=== PATIENT | male | born 1950 | race Caucasian/White ===

== ENCOUNTER 2017-07-02 06:52 | Emergency (ER) | payer MEDICARE, OTHER ==
[~2017-07-02] VITALS: Ht 182.9 cm; Wt 86.5 kg
[2017-07-02 07:01] VITALS: BP 167/86; PULSE 85; RESP 18; TEMP 97.6; O2SAT 97
--- NOTE | 2017-07-02 07:08 | PD ---
HPI Chief Complaint: Back/ Neck Pain or Injury Time Seen by Provider: 06:57 Travel History International Travel<30 days: No Contact w/Intl Traveler<30days: No Traveled to known affect area: No History of Present Illness HPI 67-year-old male complains of upper back pain. Patient state that the pain started about 4 days ago. Patient states the pains is aching pain localized to the upper back. Patient denies any pain radiation. Patient denies any headache. Patient denies any neck pain. Patient denies any chest pain or shortness of breath. Patient denies abdominal pain. Patient denies any focal weakness or numbness of extremity. Patient has been doing a lot of heavy lifting recently. Patient denies any history of CAD. Patient has history hypertension and hyperlipidemia. Patient denies history diabetes. Patient is a nonsmoker. On a scale of 1-10 the pain is a 7. PFSH Social History Tobacco Use: No Allergies-Medications (Allergen,Severity, Reaction): Coded Allergies: hydrocodone (Verified Allergy, Intermediate, Rash, 07/02/17) Reported Meds & Prescriptions Reported Meds & Active Scripts Active Robaxin (Methocarbamol) 750 Mg Tab 750 Mg PO QID Ultram (Tramadol HCl) 50 Mg Tab 50 Mg PO Q6H PRN Reported Allopurinol 100 Mg Tab 100 Mg PO DAILY [place]nard-3 Fish Oil/Vitamin (Fish Oil-Cholecalciferol) 1,000-1,000 Mg Cap 1 Cap PO DAILY Atorvastatin (Atorvastatin Calcium) 40 Mg Tab 40 Mg PO HS Omeprazole 20 Mg Tab 20 Mg PO DAILY Lisinopril 5 Mg Tab 5 Mg PO BID Review of Systems General / Constitutional: No: Fever Eyes: No: Visual changes HENT: No: Headaches Cardiovascular: No: Chest Pain or Discomfort Respiratory: No: Shortness of Breath Gastrointestinal: No: Abdominal Pain Genitourinary: No: Dysuria Musculoskeletal: No: Pain Skin: No Rash Neurologic: No: Weakness Psychiatric: No: Depression Endocrine: No: Polydipsia Hematologic/Lymphatic: No: Easy Bruising Physical Exam Narrative GENERAL: Well-nourished, well-developed patient. SKIN: Focused skin assessment warm/dry. HEAD: Normocephalic. EYES: No scleral icterus. No injection or drainage. NECK: Supple, trachea midline. No JVD or lymphadenopathy. CARDIOVASCULAR: Regular rate and rhythm without murmurs, gallops, or rubs. RESPIRATORY: Breath sounds equal bilaterally. No accessory muscle use. GASTROINTESTINAL: Abdomen soft, non-tender, nondistended. MUSCULOSKELETAL: No cyanosis, or edema. BACK: Moderate tenderness and palpation thoracic area, without obvious deformity. No CVA tenderness. Neurologic exam normal. Data Data Last Documented VS Vital Signs Date Time Temp Pulse Resp B/P (MAP) Pulse Ox O2 Delivery O2 Flow Rate FiO2 07/02/17 08:49 07/02/17 08:20 52 18 97 Room Air 07/02/17 07:01 97.6 Orders Orders Electrocardiogram (07/02/17 07:02) Complete Blood Count With Diff (07/02/17 07:02) Comprehensive Metabolic Panel (07/02/17 07:02) Creatine Kinase (Cpk) (07/02/17 07:02) Troponin I (07/02/17 07:02) Prothrombin Time / Inr (Pt) (07/02/17 07:02) Act Partial Throm Time (Ptt) (07/02/17 07:02) Chest, Single Ap (07/02/17 07:02) Iv Access Insert/Monitor (07/02/17 07:02) Ecg Monitoring (07/02/17 07:02) Oximetry (07/02/17 07:02) Morphine Inj (Morphine Inj) (07/02/17 07:15) Ondansetron Inj (Zofran Inj) (07/02/17 07:15) Ct Thorax/ Chest Wo Iv Contras (07/02/17 ) Labs Laboratory Tests Test 07/02/17 07:15 White Blood Count 5.4 TH/MM3 Red Blood Count 4.94 MIL/MM3 Hemoglobin 13.4 GM/DL Hematocrit 41.5 % Mean Corpuscular Volume 83.9 FL Mean Corpuscular Hemoglobin 27.1 PG Mean Corpuscular Hemoglobin Concent 32.3 % Red Cell Distribution Width 14.8 % Platelet Count 183 TH/MM3 Mean Platelet Volume 7.2 FL Neutrophils (%) (Auto) 51.1 % Lymphocytes (%) (Auto) 39.4 % Monocytes (%) (Auto) 5.7 % Eosinophils (%) (Auto) 3.0 % Basophils (%) (Auto) 0.8 % Neutrophils # (Auto) 2.8 TH/MM3 Lymphocytes # (Auto) 2.1 TH/MM3 Monocytes # (Auto) 0.3 TH/MM3 Eosinophils # (Auto) 0.2 TH/MM3 Basophils # (Auto) 0.0 TH/MM3 CBC Comment DIFF FINAL Differential Comment Prothrombin Time 10.6 SEC Prothromb Time International Ratio 1.0 RATIO Activated Partial Thromboplast Time 26.6 SEC Blood Urea Nitrogen 20 MG/DL Creatinine 2.00 MG/DL Random Glucose 95 MG/DL Total Protein 6.7 GM/DL Albumin 3.2 GM/DL Calcium Level 8.3 MG/DL Alkaline Phosphatase 107 U/L Aspartate Amino Transf (AST/SGOT) 23 U/L Alanine Aminotransferase (ALT/SGPT) 30 U/L Total Bilirubin 0.3 MG/DL Sodium Level 146 MEQ/L Potassium Level 3.8 MEQ/L Chloride Level 112 MEQ/L Carbon Dioxide Level 26.5 MEQ/L Anion Gap 8 MEQ/L Estimat Glomerular Filtration Rate 33 ML/MIN Total Creatine Kinase 108 U/L Troponin I LESS THAN 0.02 NG/ML MDM Medical Decision Making Medical Screen Exam Complete: Yes Emergency Medical Condition: Yes Interpretation(s) 7:58 AM. CBC within normal limit. BUN 20. Creatinine 2.0. GFR 33. Cardiac enzymes are normal. Last Impressions Chest X-Ray 07/02/17 0702 Signed Impressions: Service Date/Time: Sunday, July 02, 2017 07:18 - CONCLUSION: No acute disease. Nelson Medrano Jr., MD Chest CT 07/02/17 0000 Signed Impressions: Service Date/Time: Sunday, July 02, 2017 07:59 - CONCLUSION: 1. No acute intrathoracic process. 2. Thoracic aorta within the normal range for size. 3. Prior cholecystectomy with pneumobilia suggesting prior sphincterotomy. No biliary dilatation. Nelson Medrano Jr., MD Differential Diagnosis Differential diagnosis including musculoskeletal, angina, LA, PE, pneumothorax, aortic aneurysm. Narrative Course 67-year-old male with upper back pain. Morphine 2 mg IV. Zofran 4 mg IV. Diagnosis Primary Impression: Strain of thoracic region Qualified Codes: S29.019A - Strain of muscle and tendon of unspecified wall of thorax, initial encounter Additional Impression: Renal insufficiency Patient Instructions: General Instructions Additional Instructions: Take medication as needed for pain. Moist heat to the back. Follow-up with personal physician. Return if worse. Med/Other Pt SpecificInfo: Prescription(s) given Scripts Methocarbamol (Robaxin) 750 Mg Tab 750 MG PO QID for Muscle Spasm, #40 TAB 0 Refills Prov: Pacheco Prasad MD 07/02/17 Tramadol (Ultram) 50 Mg Tab 50 MG PO Q6H Y for PAIN, #30 TAB 0 Refills Prov: Pacheco Prasad MD 07/02/17 Disposition: 01 DISCHARGE HOME Condition: Stable Pacheco Prasad MD Jul 02, 2017 07:08
[2017-07-02] MEDS ORDERED: ONDANSETRON HCL 4 MG/2 ML VIAL IV PUSH ONE (07:15)
[2017-07-02] MEDS ORDERED: MORPHINE SULFATE 4 MG/ML INJ IV PUSH ONE (07:15)
[2017-07-02 07:22] VITALS: RESP 18; O2SAT 97
[2017-07-02 07:22] LABS: AUTOMATED NEUTROPHIL # 2.8 TH/MM3 (1.8-7.7); BASOPHIL % 0.8 % (0.0-2.0); EOSINOPHIL # 0.2 TH/MM3 (0-0.4); HEMATOCRIT 41.5 % (39.0-51.0); HEMO FLAGS DIFF FINAL; LYMPH % 39.4 % (9.0-44.0); LYMPHOCYTE # 2.1 TH/MM3 (1.0-4.8); MEAN CELL VOLUME 83.9 FL (80.0-100.0); MEAN CORPUSCULAR HEMOGLOBIN 27.1 PG (27.0-34.0); MEAN CORPUSCULAR HGB CONC 32.3 % (32.0-36.0); MONO % 5.7 % (0.0-8.0); NEUT % 51.1 % (16.0-70.0); PLATELET COUNT 183 TH/MM3 (150-450); RED BLOOD COUNT 4.94 MIL/MM3 (4.50-5.90); RED CELL DISTRIBUTION WIDTH 14.8 % (11.6-17.2); WHITE BLOOD COUNT 5.4 TH/MM3 (4.0-11.0)
[2017-07-02] MEDS ORDERED: ALLO100T PO (07:28)
[2017-07-02] MEDS ORDERED: OMEGCAP PO (07:28)
[2017-07-02] MEDS ORDERED: LISI-519 PO (07:28)
[2017-07-02] MEDS ORDERED: OMEP20TA PO (07:28)
[2017-07-02] MEDS ORDERED: ATOR40TA16 PO (07:28)
[2017-07-02 07:35] LABS: CHLORIDE 112 MEQ/L (98-107); POTASSIUM 3.8 MEQ/L (3.5-5.1); SODIUM (NA) 146 MEQ/L (136-145)
[2017-07-02 07:38] LABS: ANION GAP 8 MEQ/L (5-15); BICARBONATE 26.5 MEQ/L (21.0-32.0)
[2017-07-02 07:39] LABS: APTT (PATIENT) 26.6 SEC (24.3-30.1); BLOOD UREA NITROGEN 20 MG/DL (7-18); PROTHROMBIN TIME - PATIENT 10.6 SEC (9.8-11.6)
[2017-07-02 07:41] LABS: ALT (GPT) 30 U/L (12-78)
[2017-07-02 07:42] LABS: AST (GOT) 23 U/L (15-37); GLOMERULAR FILTRATION RATE 33 ML/MIN (>89)
[2017-07-02 07:43] LABS: TOTAL BILIRUBIN ADULT 0.3 MG/DL (0.2-1.0)
[2017-07-02 07:44] LABS: ALKALINE PHOSPHATASE 107 U/L (45-117); CREATINE KINASE 108 U/L (39-308)
--- NOTE | 2017-07-02 07:59 | RADRPT ---
EXAM DATE/TIME: 07/02/2017 07:18 [facility] COMPARISON: No previous studies available for comparison. INDICATIONS : Short of breath MEDICAL HISTORY : None. SURGICAL HISTORY : None. ENCOUNTER: Initial ACUITY: 3 days PAIN SCORE: 0/10 LOCATION: Bilateral chest FINDINGS: A single view of the chest demonstrates the lungs to be symmetrically aerated without evidence of mas s, infiltrate or effusion. The cardiomediastinal contours are unremarkable. Osseous structures are intact. CONCLUSION: No acute disease. Nelson Medrano Jr., MD on July 02, 2017 at 7:57 Board Certified Radiologist. This report was verified electronically.
--- NOTE | 2017-07-02 08:16 | RADRPT ---
EXAM DATE/TIME: 07/02/2017 07:59 [facility] COMPARISON: No previous studies available for comparison. INDICATIONS : Upper back pain x 4 days. Evaluate for aneurysm. RADIATION DOSE: 12.75 CTDIvol (mGy) MEDICAL HISTORY : Gastroesophageal reflux disease. Hypertension. SURGICAL HISTORY : Cholecystectomy. ENCOUNTER: Initial ACUITY: 4 - 6 days PAIN SCALE: 8/10 LOCATION: Upper back TECHNIQUE: Volumetric scanning of the chest was performed. Using automated exposure control and adjustment DICO M format image data is available electronically for review and comparison. Follow-up recommendations for detected pulmonary nodules are based at a minimum on nodule size and pa tient risk factors according to Fleischner Society Guidelines. FINDINGS: LUNGS: Mild cylindrical bronchiectasis in a diffuse fashion. No peribronchial thickening. No infiltrate or m ass. PLEURAE: There is no pleural thickening or pleural effusion. MEDIASTINUM: The heart is normal in size. No pericardial effusion. The ascending aorta at the top normal size rocío uring 4 cm in diameter within the mid tubular portion. Descending aorta and aortic arch are normal in caliber as well. Pulmonary arteries are normal in caliber. No adenopathy. AXILLAE: Within normal limits. No lymphadenopathy. MUSCULOSKELETAL: Within normal limits for patient age. MISCELLANEOUS: The gallbladder is surgically absent. There is pneumobilia seen within the pancreatic duct as well as the intrahepatic biliary system. No dilatation observed. A 4.3 cm cyst is seen exophytic from the up per pole the right kidney. Hounsfield units are a period CONCLUSION: 1. No acute intrathoracic process. 2. Thoracic aorta within the normal range for size. 3. Prior cholecystectomy with pneumobilia suggesting prior sphincterotomy. No biliary dilatation. Nelson Medrano Jr., MD on July 02, 2017 at 8:10 Board Certified Radiologist. This report was verified electronically.
[2017-07-02 08:20] VITALS: BP 156/80; PULSE 52; RESP 18; O2SAT 97
[2017-07-02] MEDS ORDERED: ROBA750T PO (08:32)
[2017-07-02] MEDS ORDERED: ULTR50TA5 PO (08:32)
--- NOTE | 2017-07-02 20:24 | EKG ---
Date Performed: 07/02/2017 Time Performed: 07:31:41 PTAGE: 67 years EKG: SINUS BRADYCARDIA WITH FIRST DEGREE AV BLOCK ABNORMAL ECG NO PREVIOUS TRACING DOCTOR: Emory Reyes Interpretating Date/Time 07/02/2017 20:22:10
== END 2017-07-02 08:50 | disposition home or self-care (01) ==
LOC: PHED 06:52
DX: S29.019A Strain of muscle and tendon of unspecified wall of thorax, initial encounter (principal); N28.9 Disorder of kidney and ureter, unspecified; R94.31 Abnormal electrocardiogram [ECG] [EKG]; I10 Essential (primary) hypertension; E78.5 Hyperlipidemia, unspecified; X50.0XXA Overexertion from strenuous movement or load, initial encounter
CPT/HCPCS: 71010; 71250; 80053; 82550; 84484; 85025; 85610; 85730; 93005; 96374; 96375; 99285; J2270; J2405

== ENCOUNTER 2017-07-18 23:09 | Inpatient (IN) | payer MEDICARE, OTHER ==
[~2017-07-18] VITALS: Ht 182.9 cm; Wt 88.6 kg
[~2017-07-18 23:09] MED LIST: ALLO100T PO; ATOR40TA16 PO; LISI-519 PO; OMEGCAP PO; OMEP20TA PO; ROBA750T PO; ULTR50TA5 PO
[2017-07-18 23:15] VITALS: BP 166/92; PULSE 81; RESP 16; TEMP 97.3; O2SAT 98
[2017-07-19] VITALS (11 sets, daily range): BP systolic 97–148; BP diastolic 64–95; PULSE 50–72; RESP 16–28; TEMP 96.2–98.2; O2SAT 95–99
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
[2017-07-19] MEDS ORDERED: ONDANSETRON HCL 4 MG/2 ML VIAL IV ONE (01:00)
[2017-07-19] MEDS: SODIUM CHLORIDE 0.9% FLUSH 10 ML FLUSH IV FLUSH PRN ×2 (01:27→02:32)
[2017-07-19] MEDS: SODIUM CHLOR 0.9% 1000 ML INJ 1,000 ML IV SCH ×5 (01:29→23:37)
[2017-07-19 01:52] LABS: BLOOD, URINE SMALL (NEG); GLUCOSE,URINE NEG (NEG); KETONE, URINE NEG (NEG); NITRITE,URINE NEG (NEG); PH, URINE 5.5 (5.0-8.5)
[2017-07-19 02:00] LABS: CHLORIDE 111 MEQ/L (98-107); POTASSIUM 4.3 MEQ/L (3.5-5.1); SODIUM (NA) 147 MEQ/L (136-145)
[2017-07-19 02:02] LABS: METHOD OF COLLECTION VOIDED; URINE COLOR YELLOW (YELLW/STRAW)
[2017-07-19 02:03] LABS: WBC, URINE 0-2 /hpf (0-5)
[2017-07-19 02:04] LABS: ANION GAP 8 MEQ/L (5-15); BICARBONATE 28.1 MEQ/L (21.0-32.0); BLOOD UREA NITROGEN 18 MG/DL (7-18)
[2017-07-19 02:04] LABS: COMMENT (UR) CULT NOT INDICATED; CULTURE IF INDICATED CULT NOT INDICATED; RBC, URINE 0-3 /hpf (0-3); SQUAMOUS EPITHELIAL CELL URINE 0-2 /hpf (0-5)
[2017-07-19 02:07] LABS: ALT (GPT) 39 U/L (12-78); AST (GOT) 36 U/L (15-37); GLOMERULAR FILTRATION RATE 35 ML/MIN (>89)
[2017-07-19 02:08] LABS: TOTAL BILIRUBIN ADULT 0.3 MG/DL (0.2-1.0)
[2017-07-19 02:10] LABS: ALKALINE PHOSPHATASE 112 U/L (45-117)
[2017-07-19] MEDS ORDERED: PANTOPRAZOLE SODIUM 40 MG VIAL IVP ONE (02:15)
[2017-07-19] MEDS ORDERED: FAMOTIDINE 20 MG/2 ML VIAL IV PUSH ONE (02:15)
--- NOTE | 2017-07-19 02:44 | RADRPT ---
EXAM DATE/TIME: 07/19/2017 02:17 [facility] COMPARISON: No previous studies available for comparison. INDICATIONS : Abdominal pain. Vomiting. Diarrhea. ORAL CONTRAST: No oral contrast ingested. RADIATION DOSE: 17.22 CTDIvol (mGy) MEDICAL HISTORY : Hypertension. Diverticulitis. Pancreatitis. SURGICAL HISTORY : Cholecystectomy. ENCOUNTER: Initial ACUITY: 1 day PAIN SCALE: 5/10 LOCATION: Bilateral lower quadrant TECHNIQUE: Volumetric scanning of the abdomen and pelvis was performed. Using automated exposure control and ad justment of the mA and/or kV according to patient size, radiation dose was kept as low as reasonably achievable to obtain optimal diagnostic quality images. DICOM format image data is available electro nically for review and comparison. FINDINGS: LOWER LUNGS: The visualized lower lungs are clear. LIVER: Homogeneous density without lesion. There is no dilation of the biliary tree. Pneumobilia noted. Gal lbladder surgically absent. SPLEEN: Normal size without lesion. PANCREAS: Within normal limits. KIDNEYS: Normal in size and shape. There is no mass, stone, or hydronephrosis. A 4.3 cm cyst is seen involvin g the upper pole the right kidney. ADRENAL GLANDS: Within normal limits. VASCULAR: There is no aortic aneurysm. BOWEL/MESENTERY: Bowel structures are limited in their evaluation due to the lack of oral contrast. There is stranding of the mesentery particularly involving the distal jejunal and proximal ileal loops. Very small volu me free fluid is seen. These loops of small bowel appear grossly unremarkable without discernible wal l thickening. No free air. Scattered colonic diverticuli. ABDOMINAL WALL: Within normal limits. RETROPERITONEUM: There is no lymphadenopathy. BLADDER: No wall thickening or mass. REPRODUCTIVE: Within normal limits. INGUINAL: There is no lymphadenopathy or hernia. MUSCULOSKELETAL: Within normal limits for patient age. CONCLUSION: 1. There is an inflammatory process involving the mesentery. The bowel loops are somewhat limited in their evaluation due to lack of oral contrast but the bowel loops appear grossly unremarkable. This i s suggestive of an acute mesenteritis. 2. Pneumobilia. This would suggest prior intervention such as a sphincterotomy. 3. Prior cholecystectomy. Nelson Medrano Jr., MD on July 19, 2017 at 2:38 Board Certified Radiologist. This report was verified electronically.
[2017-07-19 02:51] LABS: AUTOMATED NEUTROPHIL # 10.2 TH/MM3 (1.8-7.7); BASOPHIL # 0.2 TH/MM3 (0-0.2); BASOPHIL % 1.7 % (0.0-2.0); EOSINOPHIL # 0.2 TH/MM3 (0-0.4); EOSINOPHIL % 1.3 % (0.0-4.0); HEMATOCRIT 47.1 % (39.0-51.0); LYMPHOCYTE # 1.9 TH/MM3 (1.0-4.8); MEAN CELL VOLUME 82.5 FL (80.0-100.0); MEAN CORPUSCULAR HEMOGLOBIN 26.1 PG (27.0-34.0); MEAN CORPUSCULAR HGB CONC 31.6 % (32.0-36.0); MONO % 6.4 % (0.0-8.0); NEUT % 76.6 % (16.0-70.0); PLATELET COUNT 205 TH/MM3 (150-450); RED BLOOD COUNT 5.71 MIL/MM3 (4.50-5.90); RED CELL DISTRIBUTION WIDTH 13.9 % (11.6-17.2); WHITE BLOOD COUNT 13.4 TH/MM3 (4.0-11.0)
[2017-07-19 02:52] LABS: HEMO FLAGS DIFF FINAL
[2017-07-19] MEDS ORDERED: SODIUM CHLORIDE 0.9% FLUSH 10 ML FLUSH IV FLUSH PRN (03:45)
[2017-07-19] MEDS ORDERED: LACTULOSE SYRUP 20 GM/30 ML CUP PO PRN (03:45)
[2017-07-19] MEDS ORDERED: ACETAMINOPHEN 325 MG TAB PO PRN (03:45)
[2017-07-19] MEDS ORDERED: traMADol HCL 50 MG TAB PO PRN ×2 (03:45→17:15)
[2017-07-19] MEDS ORDERED: ONDANSETRON HCL 4 MG/2 ML VIAL IVP PRN (03:45)
[2017-07-19] MEDS ORDERED: BISACODYL 10 MG SUPP RECTAL PRN (03:45)
[2017-07-19] MEDS ORDERED: MORPHINE SULFATE 4 MG/ML INJ IV PUSH PRN (03:45)
[2017-07-19] MEDS ORDERED: MAGNESIUM HYDROXIDE SUSP 30 ML CUP PO PRN (03:45)
[2017-07-19] MEDS ORDERED: SENNOSIDES 8.6 MG TAB PO PRN (03:45)
[2017-07-19] MEDS: CIPROFLOXACIN 400 MG PREMIX 200 ML IV SCH ×2 (03:53→16:16)
[2017-07-19] MEDS: metroNIDAZOLE 500 MG INJ 100 ML IV SCH ×2 (05:03→13:28)
[2017-07-19 05:19] LABS: C. DIFF EPI 027 PRESUMPTIVE NEGATIVE (NEGATIVE)
[2017-07-19] MEDS: SODIUM CHLORIDE 0.9% FLUSH 10 ML FLUSH IV FLUSH SCH ×2 (09:00→21:00)
[2017-07-19] MEDS: DOCUSATE SODIUM 50 MG/SENNA 8.6 MG TAB PO SCH ×2 (09:00→21:00)
--- NOTE | 2017-07-19 09:08 | HHI.HP ---
[facility] Marques Mcmillan MD Admission Diagnosis mesenteritis, dehydration Diagnoses: Travel History International Travel<30 Days: No Contact w/Intl Traveler <30 Da: No Traveled to Known Affected Are: No Past Family Social History Allergies: Coded Allergies: hydrocodone (Verified Allergy, Intermediate, Rash, 07/19/17) Physical Exam Vital Signs Vital Signs Date Time Temp Pulse Resp B/P (MAP) Pulse Ox O2 Delivery O2 Flow Rate FiO2 07/19/17 07:59 82 18 110/67 (81) 96 07/19/17 06:36 56 16 108/64 (79) 99 Room Air 07/19/17 05:35 58 16 97/65 (76) 95 Room Air 07/19/17 04:35 66 16 125/79 (94) 97 Room Air 07/19/17 03:35 98.2 67 16 140/66 (90) 99 Room Air 07/19/17 03:35 18 07/19/17 02:35 70 16 126/74 (91) 97 Room Air 07/19/17 01:35 70 16 148/83 (104) 95 Room Air 07/19/17 00:35 72 16 146/95 (112) 96 Room Air 07/19/17 00:35 18 96 Room Air 07/19/17 00:30 18 07/18/17 23:15 97.3 81 16 166/92 (116) 98 Physical Exam GENERAL: This is a well-nourished, well-developed patient, in no apparent distress. SKIN: No rashes, ecchymoses or lesions. Cool and dry. HEAD: Atraumatic. Normocephalic. No temporal or scalp tenderness. EYES: Pupils equal round and reactive. Extraocular motions intact. No scleral icterus. No injection or drainage. ENT: Nose without bleeding, purulent drainage or septal hematoma. Throat without erythema, tonsillar hypertrophy or exudate. Uvula midline. Airway patent. NECK: Trachea midline. No JVD or lymphadenopathy. Supple, nontender, no meningeal signs. CARDIOVASCULAR: Regular rate and rhythm without murmurs, gallops, or rubs. RESPIRATORY: Clear to auscultation. Breath sounds equal bilaterally. No wheezes , rales, or rhonchi. GASTROINTESTINAL: Abdomen soft, non-tender, nondistended. No hepato-splenomegaly , or palpable masses. No guarding. MUSCULOSKELETAL: Extremities without clubbing, cyanosis, or edema. No joint tenderness, effusion, or edema noted. No calf tenderness. Negative Homans sign bilaterally. NEUROLOGICAL: Awake and alert. Cranial nerves II through XII intact. Motor and sensory grossly within normal limits. Five out of 5 muscle strength in all muscle groups. Normal speech. Laboratory Laboratory Tests Test 07/19/17 00:15 07/19/17 00:25 07/19/17 01:20 Urine Collection Type VOIDED Urine Color YELLOW Urine Turbidity CLEAR Urine pH 5.5 Urine Specific [place] 1.031 Urine Protein 30 Urine Glucose (UA) NEG Urine Ketones NEG Urine Occult Blood SMALL Urine Nitrite NEG Urine Bilirubin NEG Urine Leukocyte Esterase NEG Urine RBC 0-3 Urine WBC 0-2 Urine Squamous Epithelial Cells 0-2 Urine Hyaline Casts 3-5 Microscopic Urinalysis Comment CULT NOT INDICATED Stool C. difficile Toxin (PCR) NEGATIVE Stl C. difficile Toxin Epiderm 027 PRESUMPTIVE NEGATIVE White Blood Count 13.4 Red Blood Count 5.71 Hemoglobin 14.9 Hematocrit 47.1 Mean Corpuscular Volume 82.5 Mean Corpuscular Hemoglobin 26.1 Mean Corpuscular Hemoglobin Concent 31.6 Red Cell Distribution Width 13.9 Platelet Count 205 Mean Platelet Volume 8.8 Neutrophils (%) (Auto) 76.6 Lymphocytes (%) (Auto) 14.0 Monocytes (%) (Auto) 6.4 Eosinophils (%) (Auto) 1.3 Basophils (%) (Auto) 1.7 Neutrophils # (Auto) 10.2 Lymphocytes # (Auto) 1.9 Monocytes # (Auto) 0.9 Eosinophils # (Auto) 0.2 Basophils # (Auto) 0.2 CBC Comment DIFF FINAL Differential Comment Blood Urea Nitrogen 18 Creatinine 1.90 Random Glucose 117 Total Protein 7.5 Albumin 3.5 Calcium Level 8.8 Alkaline Phosphatase 112 Aspartate Amino Transf (AST/SGOT) 36 Alanine Aminotransferase (ALT/SGPT) 39 Total Bilirubin 0.3 Sodium Level 147 Potassium Level 4.3 Chloride Level 111 Carbon Dioxide Level 28.1 Anion Gap 8 Estimat Glomerular Filtration Rate 35 Troponin I LESS THAN 0.02 Lipase 227 Date/Time Source Procedure Growth Status 07/19/17 00:25 Stool Stool Cryptosporidium Exam Pending Received 07/19/17 00:25 Stool Stool Giardia Antigen (SANJAY) Pending Received Result Diagram: 07/19/17 0120 07/19/17 0120 Caprini VTE Risk Assessment Caprini Risk Assessment Model Point Value = 1 Point Value = 2 Point Value = 3 Point Value = 5 Age 41-60 Minor surgery BMI > 25 kg/m2 Swollen legs Varicose veins or History of unexplained or recurrent spontaneous Oral contraceptives or hormone replacement Sepsis (< 1 month) Serious lung disease, including pneumonia (< 1 month) Abnormal pulmonary function Acute myocardial infarction Congestive heart failure (< 1 month) History of inflammatory bowel disease Medical patient at bed rest Age 61-74 Arthroscopic surgery Major open surgery (> 45 min) Laparoscopic surgery (> 45 min) Malignancy Confined to bed (> 72 hours) Immobilizing plaster cast Central venous access Age >= 75 History of VTE Family history of VTE Factor V Leiden Prothrombin [id number] Lupus anticoagulant Anticardiolipin antibodies Elevated serum homocysteine Heparin-induced thrombocytopenia Other congenital or acquired thrombophilia Stroke (< 1 month) Elective arthroplasty Hip, pelvis, or leg fracture Acute spinal cord injury (< 1 month) Prophylaxis Regimen Total Risk Factor Score Risk Level Prophylaxis Regimen 0-1 Low Early ambulation 2 Moderate Order ONE of the following: *Sequential Compression Device (SCD) *Heparin 5000 units SQ BID 3-4 Higher Order ONE of the following medications: *Heparin 5000 units SQ TID *Enoxaparin/Lovenox 40 mg SQ daily (WT < 150 kg, CrCl > 30 mL/min) *Enoxaparin/Lovenox 30 mg SQ daily (WT < 150 kg, CrCl > 10-29 mL/min) *Enoxaparin/Lovenox 30 mg SQ BID (WT < 150 kg, CrCl > 30 mL/min) AND/OR *Sequential Compression Device (SCD) 5 or more Highest Order ONE of the following medications: *Heparin 5000 units SQ TID (Preferred with Epidurals) *Enoxaparin/Lovenox 40 mg SQ daily (WT < 150 kg, CrCl > 30 mL/min) *Enoxaparin/Lovenox 30 mg SQ daily (WT < 150 kg, CrCl > 10-29 mL/min) *Enoxaparin/Lovenox 30 mg SQ BID (WT < 150 kg, CrCl > 30 mL/min) AND *Sequential Compression Device (SCD) Physician Certification Order for Inpatient Services The services are ordered in accordance with Medicare regulations or non- Medicare payer requirements, as applicable. In the case of services not specified as inpatient-only, they are appropriately provided as inpatient services in accordance with the 2-midnight benchmark. days is the estimated time the patient will need to remain in the hospital, assuming treatment plan goals are met and no additional complications. Ryan Mcdowell Jul 19, 2017 09:08 Rakesh Rahman MD Jul 19, 2017 17:20
[2017-07-19] MEDS: PANTOPRAZOLE SOD 20 MG DELAYED RELEASE TAB PO SCH (09:27)
[2017-07-19] MEDS: METHOCARBAMOL 500 MG TAB PO SCH ×4 (09:28→21:00)
--- NOTE | 2017-07-19 10:50 | HHI.HP ---
[facility] Marques Mmcillan MD Admission Diagnosis mesenteritis, dehydration Diagnoses: (1) Nausea & vomiting (2) Diarrhea in adult patient Diagnosis: Principal (3) Leukocytosis Diagnosis: Principal (4) Chronic kidney disease, stage 3 Diagnosis: Principal Chief Complaint: Nausea, vomiting, diarrhea Travel History International Travel<30 Days: No Contact w/Intl Traveler <30 Da: No Traveled to Known Affected Are: No History of Present Illness Written by Ryan Mcdowell, acting as scribe for Dr. Padilla on 07/19/17 at 10 :50. This is an 67-year-old with known history of hypertension, gout, diverticulitis , history of pancreatitis, Gastrosoft reflux who presented to hospital because of sudden onset diarrhea and then developing nausea vomiting. Patient states that he was in his normal state of health until 9 PM last night when he started having watery diarrhea probably 4-5 times because the diarrhea was persisting he decided to come to the hospital for evaluation and he got in the car to come to the ER and vomited [address]. He vomited another 2 times when his emergency department. He states that he had diarrhea 4 times in the emergency department. The patient was brought to the medical floor and vomited 2 times there. He has already had 2 bowel movements this morning. He states that he has not had any emesis and 6 AM. He was experiencing abdominal pain mainly in the lower abdomen after the diarrhea which he described as a sharp pain. The patient tried to use some Imodium at home without any improvement as well as a medication that his niece had which was Anaspac without any relief. Patient states that eating Cracker Barrel 11:30 AM yesterday morning. Denying anything else until 7 PM last night which was cornbread and milk. Patient denies any fever, chills, hematochezia, melena, hematemesis, dysuria, urinary frequency patient states that his GI doctor is Dr. Phipps and his last colonoscopy was approximately 2 years ago. Patient had workup done emergency department found to have signs of dehydration, leukocytosis, CT scan indicating mesenteritis. Because of those reasons is recommended by the ER physician that the patient be admitted for further evaluation and management Review of Systems Gastrointestinal: COMPLAINS OF: Abdominal pain, Diarrhea, Nausea, Vomiting Except as stated in HPI: all other systems reviewed are Neg Past Family Social History Past Medical History Hypertension Gout Gastroesophageal reflux History diverticulitis History of C. difficile History of pancreatitis Past Surgical History Cholecystectomy Gallstone removal Reported Medications Reported Meds & Active Scripts Active Robaxin (Methocarbamol) 750 Mg Tab 750 Mg PO QID Ultram (Tramadol HCl) 50 Mg Tab 50 Mg PO Q6H PRN Reported Allopurinol 100 Mg Tab 100 Mg PO DAILY [place]-3 Fish Oil/Vitamin (Fish Oil-Cholecalciferol) 1,000-1,000 Mg Cap 1 Cap PO DAILY Atorvastatin (Atorvastatin Calcium) 40 Mg Tab 40 Mg PO HS Omeprazole 20 Mg Tab 20 Mg PO DAILY Lisinopril 5 Mg Tab 5 Mg PO BID Allergies: Coded Allergies: hydrocodone (Verified Allergy, Intermediate, Rash, 07/19/17) Family History Reviewed is significant for mother is but she had history of ulcers, colon and stomach cancer Social History Patient denies any alcohol or illicit drug use. Patient quit smoking in 2013. He believes that he had smoked over 10 years Physical Exam Vital Signs Vital Signs Date Time Temp Pulse Resp B/P (MAP) Pulse Ox O2 Delivery O2 Flow Rate FiO2 07/19/17 07:59 82 18 110/67 (81) 96 07/19/17 06:36 56 16 108/64 (79) 99 Room Air 07/19/17 05:35 58 16 97/65 (76) 95 Room Air 07/19/17 04:35 66 16 125/79 (94) 97 Room Air 07/19/17 03:35 98.2 67 16 140/66 (90) 99 Room Air 07/19/17 03:35 18 07/19/17 02:35 70 16 126/74 (91) 97 Room Air 07/19/17 01:35 70 16 148/83 (104) 95 Room Air 07/19/17 00:35 72 16 146/95 (112) 96 Room Air 07/19/17 00:35 18 96 Room Air 07/19/17 00:30 18 07/18/17 23:15 97.3 81 16 166/92 (116) 98 Physical Exam GENERAL: Well-developed, well-nourished, in no acute distress. alert and orientated HEENT: Head is normocephalic without any lesions or masses noted. Facial features are symmetric. Eyes: Pupils equal round reactive to light. Extraocular muscles are intact. Conjunctivae were clear. Oropharyngeal: Pharynx without any erythema edema. Tongue is midline without deviation. Buccal mucosa is moist without any masses or lesions NECK: Supple without any masses. Trachea midline no deviation. No JVD, no bruits are appreciated CARDIAC: Regular rhythm, regular rate. S1/S2 are heard. No murmurs gallops or rubs. LUNGS: Clear to auscultation bilaterally. No wheeze, rhonchi or rales. No use of accessory muscles on inspiration or expiration. ABDOMEN: Soft, nontender. Mild tenderness noted in epigastric region, left upper abdomen. positive rebound noted in the left lower quadrant. Bowel sounds heard in all 4 quadrants. No organomegaly or masses. negative guarding EXTREMITIES: No edema, pulses are equal bilaterally. No cyanosis or clubbing NEUROLOGY: Mood and affect appear appropriate. Cranial nerves II through XII grossly intact. Muscle strength 5/5 in upper and lower extremities bilaterally. Deep tendon reflexes are 2+ in upper and lower extremities bilaterally. Laboratory Laboratory Tests Test 07/19/17 00:15 07/19/17 00:25 07/19/17 01:20 Urine Collection Type VOIDED Urine Color YELLOW Urine Turbidity CLEAR Urine pH 5.5 Urine Specific [place] 1.031 Urine Protein 30 Urine Glucose (UA) NEG Urine Ketones NEG Urine Occult Blood SMALL Urine Nitrite NEG Urine Bilirubin NEG Urine Leukocyte Esterase NEG Urine RBC 0-3 Urine WBC 0-2 Urine Squamous Epithelial Cells 0-2 Urine Hyaline Casts 3-5 Microscopic Urinalysis Comment CULT NOT INDICATED Stool C. difficile Toxin (PCR) NEGATIVE Stl C. difficile Toxin Epiderm 027 PRESUMPTIVE NEGATIVE White Blood Count 13.4 Red Blood Count 5.71 Hemoglobin 14.9 Hematocrit 47.1 Mean Corpuscular Volume 82.5 Mean Corpuscular Hemoglobin 26.1 Mean Corpuscular Hemoglobin Concent 31.6 Red Cell Distribution Width 13.9 Platelet Count 205 Mean Platelet Volume 8.8 Neutrophils (%) (Auto) 76.6 Lymphocytes (%) (Auto) 14.0 Monocytes (%) (Auto) 6.4 Eosinophils (%) (Auto) 1.3 Basophils (%) (Auto) 1.7 Neutrophils # (Auto) 10.2 Lymphocytes # (Auto) 1.9 Monocytes # (Auto) 0.9 Eosinophils # (Auto) 0.2 Basophils # (Auto) 0.2 CBC Comment DIFF FINAL Differential Comment Blood Urea Nitrogen 18 Creatinine 1.90 Random Glucose 117 Total Protein 7.5 Albumin 3.5 Calcium Level 8.8 Alkaline Phosphatase 112 Aspartate Amino Transf (AST/SGOT) 36 Alanine Aminotransferase (ALT/SGPT) 39 Total Bilirubin 0.3 Sodium Level 147 Potassium Level 4.3 Chloride Level 111 Carbon Dioxide Level 28.1 Anion Gap 8 Estimat Glomerular Filtration Rate 35 Troponin I LESS THAN 0.02 Lipase 227 Date/Time Source Procedure Growth Status 07/19/17 00:25 Stool Stool Cryptosporidium Exam Pending Received 07/19/17 00:25 Stool Stool Giardia Antigen (SANJAY) Pending Received Result Diagram: 07/19/1711907/19/17 012 Imaging Last Impressions Abdomen/Pelvis CT 07/19/177 Signed Impressions: Service Date/Time: Wednesday, July 19, 2017 02:17 - CONCLUSION: 1. There is an inflammatory process involving the mesentery. The bowel loops are somewhat limited in their evaluation due to lack of oral contrast but the bowel loops appear grossly unremarkable. This is suggestive of an acute mesenteritis. 2. Pneumobilia. This would suggest prior intervention such as a sphincterotomy. 3. Prior cholecystectomy. MD Gerardo Carmona Jr. VTE Risk Assessment Caprini VTE Risk Assessment: Mod/High Risk (score >= 2) Caprini Risk Assessment Model Point Value = 1 Point Value = 2 Point Value = 3 Point Value = 5 Age 41-60 Minor surgery BMI > 25 kg/m2 Swollen legs Varicose veins or History of unexplained or recurrent spontaneous Oral contraceptives or hormone replacement Sepsis (< 1 month) Serious lung disease, including pneumonia (< 1 month) Abnormal pulmonary function Acute myocardial infarction Congestive heart failure (< 1 month) History of inflammatory bowel disease Medical patient at bed rest Age 61-74 Arthroscopic surgery Major open surgery (> 45 min) Laparoscopic surgery (> 45 min) Malignancy Confined to bed (> 72 hours) Immobilizing plaster cast Central venous access Age >= 75 History of VTE Family history of VTE Factor V Leiden Prothrombin [id number] Lupus anticoagulant Anticardiolipin antibodies Elevated serum homocysteine Heparin-induced thrombocytopenia Other congenital or acquired thrombophilia Stroke (< 1 month) Elective arthroplasty Hip, pelvis, or leg fracture Acute spinal cord injury (< 1 month) Prophylaxis Regimen Total Risk Factor Score Risk Level Prophylaxis Regimen 0-1 Low Early ambulation 2 Moderate Order ONE of the following: *Sequential Compression Device (SCD) *Heparin 5000 units SQ BID 3-4 Higher Order ONE of the following medications: *Heparin 5000 units SQ TID *Enoxaparin/Lovenox 40 mg SQ daily (WT < 150 kg, CrCl > 30 mL/min) *Enoxaparin/Lovenox 30 mg SQ daily (WT < 150 kg, CrCl > 10-29 mL/min) *Enoxaparin/Lovenox 30 mg SQ BID (WT < 150 kg, CrCl > 30 mL/min) AND/OR *Sequential Compression Device (SCD) 5 or more Highest Order ONE of the following medications: *Heparin 5000 units SQ TID (Preferred with Epidurals) *Enoxaparin/Lovenox 40 mg SQ daily (WT < 150 kg, CrCl > 30 mL/min) *Enoxaparin/Lovenox 30 mg SQ daily (WT < 150 kg, CrCl > 10-29 mL/min) *Enoxaparin/Lovenox 30 mg SQ BID (WT < 150 kg, CrCl > 30 mL/min) AND *Sequential Compression Device (SCD) Assessment and Plan Assessment and Plan Abdominal pain with nausea, vomiting, diarrhea Likely secondary to gastroenteritis, food poisoning CT scan does indicate mesenteritis and pneumobilia Discussion with radiologist was performed and it was indicated that pneumobilia could be persistent or recurrent after sphincterotomy C. difficile testing was negative, stool studies otherwise are neg Continue IV fluid Will w/h abx at this time since this is likely viral. Zofran as needed for nausea vomiting Leukocytosis Likely secondary to dehydration, indices do indicate possible concentration Monitor CBC Chronic kidney disease stage III Renal functions appear to be stable at this time Avoid nephrotoxins Hypertension Continue monitor blood pressure and resume home medications when appropriate DVT prevention Lovenox Physician Certification 2 Midnight Certification Type: Admission for Inpatient Services Order for Inpatient Services The services are ordered in accordance with Medicare regulations or non- Medicare payer requirements, as applicable. In the case of services not specified as inpatient-only, they are appropriately provided as inpatient services in accordance with the 2-midnight benchmark. Estimated LOS (days): 2 days is the estimated time the patient will need to remain in the hospital, assuming treatment plan goals are met and no additional complications. Post-Hospital Plan: Home Ryan Mcdowell Jul 19, 2017 10:50 Rakesh Rahman MD Jul 19, 2017 17:19
--- NOTE | 2017-07-19 14:17 | EKG ---
Date Performed: 07/19/2017 Time Performed: 02:43:14 PTAGE: 67 years EKG: Sinus rhythm NORMAL ECG PREVIOUS TRACING : 07/02/2017 07.31 No significant change from previous tracing noted. DOCTOR: Paulie Ross Interpretating Date/Time 07/19/2017 14:16:08
[2017-07-19] MEDS ORDERED: ATORVASTATIN 40 MG TAB PO SCH (21:00)
[2017-07-20] VITALS: BP 107/65; PULSE 73; RESP 18; TEMP 97.3; O2SAT 96
[2017-07-20 06:06] LABS: BASOPHIL # 0.2 TH/MM3 (0-0.2); BASOPHIL % 2.7 % (0.0-2.0); EOSINOPHIL # 0.2 TH/MM3 (0-0.4); EOSINOPHIL % 2.6 % (0.0-4.0); HEMATOCRIT 37.8 % (39.0-51.0); HEMO FLAGS DIFF FINAL; LYMPH % 35.4 % (9.0-44.0); LYMPHOCYTE # 2.1 TH/MM3 (1.0-4.8); MEAN CELL VOLUME 83.1 FL (80.0-100.0); MEAN CORPUSCULAR HEMOGLOBIN 26.5 PG (27.0-34.0); MEAN CORPUSCULAR HGB CONC 31.9 % (32.0-36.0); MONO % 5.4 % (0.0-8.0); NEUT % 53.9 % (16.0-70.0); PLATELET COUNT 157 TH/MM3 (150-450); RED BLOOD COUNT 4.55 MIL/MM3 (4.50-5.90); RED CELL DISTRIBUTION WIDTH 13.5 % (11.6-17.2); WHITE BLOOD COUNT 5.8 TH/MM3 (4.0-11.0)
[2017-07-20 06:11] LABS: POTASSIUM 3.7 MEQ/L (3.5-5.1)
[2017-07-20 06:52] LABS: BICARBONATE 25.4 MEQ/L (21.0-32.0)
[2017-07-20 08:00] VITALS: BP 124/68; PULSE 60; RESP 18; TEMP 96.3; O2SAT 95
[2017-07-20] MEDS: SODIUM CHLORIDE 0.9% FLUSH 10 ML FLUSH IV FLUSH SCH (09:00)
[2017-07-20] MEDS: METHOCARBAMOL 500 MG TAB PO SCH ×3 (09:00→17:26)
[2017-07-20] MEDS ORDERED: NON-FORMULARY DRUG (Fish Oil-Cholecalciferol (Omega-3 Fish Oil/Vitamin) 1 CAP) PO SCH (09:00)
[2017-07-20] MEDS: DOCUSATE SODIUM 50 MG/SENNA 8.6 MG TAB PO SCH (09:00)
[2017-07-20] MEDS: PANTOPRAZOLE SOD 20 MG DELAYED RELEASE TAB PO SCH (09:01)
[2017-07-20] MEDS: SODIUM CHLOR 0.9% 1000 ML INJ 1,000 ML IV SCH (09:37)
--- NOTE | 2017-07-20 11:35 | HHI.DCPOC ---
Discharge Care Plan Additional Problems N/V Goals to Promote Your Health * To prevent worsening of your condition and complications * To maintain your health at the optimal level Directions to Meet Your Goals Take your medications as prescribed Follow your dietary instruction Follow activity as directed Keep your appointments as scheduled Take your immunizations and boosters as scheduled If your symptoms worsen call your PCP, if no PCP go to Urgent Care Center or Emergency Room Smoking is Dangerous to Your Health. Avoid second hand smoke Call the 24-hour hour crisis hotline for domestic abuse at Rakesh Rahman MD Jul 20, 2017 11:35
--- NOTE | 2017-07-20 11:37 | HHI.DS ---
Discharge Summary Admission Date Jul 19, 2017 at 03:40 Discharge Date: Jul 20, 2017 Admitting Diagnosis mesenteritis, dehydration (1) Nausea & vomiting ICD Code: R11.2 - Nausea with vomiting, unspecified (2) Diarrhea in adult patient ICD Code: R19.7 - Diarrhea, unspecified Diagnosis: Principal (3) Leukocytosis ICD Code: D72.829 - Elevated white blood cell count, unspecified Diagnosis: Principal (4) Chronic kidney disease, stage 3 ICD Code: N18.3 - Chronic kidney disease, stage 3 (moderate) Diagnosis: Principal Procedures none Brief History - From Admission This is an 67-year-old with known history of hypertension, gout, diverticulitis , history of pancreatitis, Gastrosoft reflux who presented to hospital because of sudden onset diarrhea and then developing nausea vomiting. Patient states that he was in his normal state of health until 9 PM last night when he started having watery diarrhea probably 4-5 times because the diarrhea was persisting he decided to come to the hospital for evaluation and he got in the car to come to the ER and vomited [address] here. He vomited another 2 times when his emergency department. He states that he had diarrhea 4 times in the emergency department. The patient was brought to the medical floor and vomited 2 times there. He has already had 2 bowel movements this morning. He states that he has not had any emesis and 6 AM. He was experiencing abdominal pain mainly in the lower abdomen after the diarrhea which he described as a sharp pain. The patient tried to use some Imodium at home without any improvement as well as a medication that his niece had which was Anaspac without any relief. Patient states that eating Cracker Barrel 11:30 AM yesterday morning. Denying anything else until 7 PM last night which was cornbread and milk. Patient denies any fever, chills, hematochezia, melena, hematemesis, dysuria, urinary frequency patient states that his GI doctor is Dr. Phipps and his last colonoscopy was approximately 2 years ago. Patient had workup done emergency department found to have signs of dehydration, leukocytosis, CT scan indicating mesenteritis. Because of those reasons is recommended by the ER physician that the patient be admitted for further evaluation and management CBC/BMP: 07/20/17 0547 07/20/17 0547 Significant Findings Laboratory Tests Test 07/19/17 00:15 07/19/17 00:25 07/19/17 01:20 07/20/17 05:47 Urine Protein 30 mg/dL (NEG-TRACE) Urine Occult Blood SMALL (NEG) Urine Hyaline Casts 3-5 /lpf (RARE) White Blood Count 13.4 TH/MM3 (4.0-11.0) Mean Corpuscular Hemoglobin 26.1 PG (27.0-34.0) 26.5 PG (27.0-34.0) Mean Corpuscular Hemoglobin Concent 31.6 % (32.0-36.0) 31.9 % (32.0-36.0) Neutrophils (%) (Auto) 76.6 % (16.0-70.0) Neutrophils # (Auto) 10.2 TH/MM3 (1.8-7.7) Creatinine 1.90 MG/DL (0.60-1.30) 1.60 MG/DL (0.60-1.30) Random Glucose 117 MG/DL (74-106) Sodium Level 147 MEQ/L (136-145) Chloride Level 111 MEQ/L (98-107) 113 MEQ/L (98-107) Estimat Glomerular Filtration Rate 35 ML/MIN (>89) 43 ML/MIN (>89) Troponin I LESS THAN 0.02 NG/ML Hemoglobin 12.1 GM/DL (13.0-17.0) Hematocrit 37.8 % (39.0-51.0) Basophils (%) (Auto) 2.7 % (0.0-2.0) Calcium Level 7.5 MG/DL (8.5-10.1) PE at Discharge No acute distress Soft abdomen, nontender, nondistended, positive bowel sounds Hospital Course Patient was admitted, started on IV fluids and antiemetics as well as and the diarrheal's once his C. difficile came back negative. Patient was started on by mouth diet which he tolerated well and was advanced successfully. Remained afebrile throughout his hospitalization; has met maximum benefit from hospitalization and is clinically stable for discharge. Had a thorough conversation with the patient about repeating CT scans since this was something that his family members are concerned about. I informed him that there was no need to repeat radiation imaging if his symptoms had improved. Patient had verbalized understanding. Pt Condition on Discharge: Stable Discharge Disposition: Discharge Home Discharge Time: > 30 minutes Discharge Instructions DIET: Follow Instructions for: As Tolerated, No Restrictions Activities you can perform: Regular-No Restrictions Follow up Referrals: PCP Follow-up - 10 Days New Medications: Ondansetron (Zofran) 4 Mg Tab 4 MG PO Q6HR PRN for NAUSEA OR VOMITING, #12 TAB 0 Refills Continued Medications: Allopurinol (Allopurinol) 100 Mg Tab 100 MG PO DAILY for Gout, #30 TAB 0 Refills Atorvastatin (Atorvastatin) 40 Mg Tab 40 MG PO HS for Cholesterol Management, #30 TAB 0 Refills Fish Oil-Cholecalciferol ([place]-3 Fish Oil/Vitamin) 1,000-1,000 Mg Cap 1 CAP PO DAILY for Nutritional Supplement, CAP 0 Refills Lisinopril (Lisinopril) 5 Mg Tab 5 MG PO BID for Blood Pressure Management, #30 TAB 0 Refills Methocarbamol (Robaxin) 750 Mg Tab 750 MG PO QID for Muscle Spasm, #40 TAB 0 Refills Omeprazole (Omeprazole) 20 Mg Tab 20 MG PO DAILY, #30 TAB 0 Refills Tramadol (Ultram) 50 Mg Tab 50 MG PO Q6H PRN for PAIN, #30 TAB 0 Refills Rakesh Rahman MD Jul 20, 2017 11:37
[2017-07-20 12:00] VITALS: BP 120/71; PULSE 72; RESP 18; TEMP 97.1; O2SAT 96
[2017-07-20] MEDS ORDERED: ZOFR4TAB PO (17:46)
[2017-07-21] MEDS ORDERED: ENOXAPARIN SODIUM 30 MG/0.3 ML SYRINGE SQ SCH (09:00)
== END 2017-07-20 18:04 | disposition home or self-care (01) | DRG 392 ==
LOC: PHED 23:09 → PHEDH 07-19 03:40 → PH3B 07-19 07:50
PROVIDERS: ADMIT Hospitalist; ATTEND Hospitalist
DX: K52.9 Noninfective gastroenteritis and colitis, unspecified (principal); N18.3 Chronic kidney disease, stage 3 (moderate); I12.9 Hypertensive chronic kidney disease with stage 1 through stage 4 chronic kidney disease, or unspecified chronic kidney disease; M10.9 Gout, unspecified; E86.0 Dehydration; Z87.891 Personal history of nicotine dependence; K21.9 Gastro-esophageal reflux disease without esophagitis; A05.9 Bacterial foodborne intoxication, unspecified; Z80.0 Family history of malignant neoplasm of digestive organs
CPT/HCPCS: 74176; 80048; 80053; 81001; 83690; 84484; 85025; 87328; 87329; 87425; 87493; 93005; 96361; 96374; 96375; C9113; J0744; J2405; J7030

== ENCOUNTER 2017-09-06 17:34 | Emergency (ER) | payer MEDICARE, OTHER ==
[~2017-09-06] VITALS: Ht 182.9 cm; Wt 85.0 kg
[~2017-09-06 17:34] MED LIST changes: -OMEP20TA PO; +OMEP20TA93 PO; +TRAM50 PO; -ULTR50TA5 PO; +ZOFR4TAB PO
[2017-09-06 17:48] VITALS: BP 168/79; PULSE 72; RESP 16; TEMP 99.4; O2SAT 97
[2017-09-06] MEDS ORDERED: ATOR20TA15 PO (18:32)
[2017-09-06] MEDS ORDERED: LISI-515 PO ×2 (18:32)
[2017-09-06] MEDS ORDERED: MOME17I EACH NARE (18:49)
[2017-09-06] MEDS ORDERED: AUGM875T3 PO (18:49)
--- NOTE | 2017-09-06 18:49 | PD ---
HPI Chief Complaint: Cold / Flu Symptoms Time Seen by Provider: 18:41 Travel History International Travel<30 days: No Contact w/Intl Traveler<30days: No Traveled to known affect area: No History of Present Illness HPI This is a 67-year-old male who presents to the emergency department with 2 days of nasal congestion, constant, severe, associated with pressure in his forehead and face associated with a headache. He has tried naproxen and Flonase but it' s not helping. He says he has body aches that he feels painful all over. He denies any specific neck pain. He has felt feverish. PFSH Past Medical History High Cholesterol: Yes Chest Pain: Yes Diminished Hearing: No Diverticulitis: Yes Gastrointestinal Disorders: Yes (C-DIFF) GERD: Yes Gout: Yes Herniated Disk: Yes (lumbar spine) Hypertension: Yes Pancreatitis: Yes Tetanus Vaccination: < 5 Years Influenza Vaccination: No Past Surgical History Abdominal Surgery: Yes (REMOVAL OF STONE IN BILE DUCT DAY AFTER RANDA.) Cholecystectomy: Yes Social History Alcohol Use: No Tobacco Use: No (QUIT 2013) Substance Use: No Allergies-Medications (Allergen,Severity, Reaction): Coded Allergies: hydrocodone (Verified Allergy, Intermediate, Rash, 09/06/17) Reported Meds & Prescriptions Reported Meds & Active Scripts Active Reported Lisinopril 20 Mg Tab 20 Mg PO BID Atorvastatin (Atorvastatin Calcium) 20 Mg Tab 20 Mg PO HS Allopurinol 100 Mg Tab 100 Mg PO DAILY Omeprazole 20 Mg Tab 20 Mg PO DAILY Review of Systems Except as stated in HPI: all other systems reviewed are Neg Physical Exam Narrative GENERAL:Well appearing, no acute distress SKIN: Focused skin assessment warm and dry. HEAD: Atraumatic. Normocephalic. EYES: Pupils equal and round. No injection or drainage. ENT: Moist mucous membranes. Tender to palpation over the maxillary and frontal sinuses with erythematous Mnire's. NECK: Trachea midline. No meningismus. CARDIOVASCULAR: Regular rate and rhythm. No murmur appreciated. RESPIRATORY: Clear to auscultation. Breath sounds equal bilaterally. GASTROINTESTINAL: Abdomen soft, non-tender, nondistended. MUSCULOSKELETAL: No obvious deformities. NEUROLOGICAL: Awake and alert. No obvious cranial nerve deficits. Moving all extremities. PSYCHIATRIC: Appropriate mood and affect; insight and judgment normal. Data Data Last Documented VS Vital Signs Date Time Temp Pulse Resp B/P (MAP) Pulse Ox O2 Delivery O2 Flow Rate FiO2 09/06/17 18:26 68 94 Room Air 09/06/17 17:48 99.4 16 168/79 (108) Orders Orders Influenzae A/B Antigen (09/06/17 18:41) MDM Medical Decision Making Medical Screen Exam Complete: Yes Emergency Medical Condition: Yes Interpretation(s) Temperature is 99.4 Differential Diagnosis Sinusitis, viral syndrome, influenza, pneumonia Narrative Course This is a 67-year-old male who presents to the emergency department with nasal congestion, body aches and subjective fevers. He appears uncomfortable on exam. He is not hypoxic and his symptoms predominantly seemed to be coming from his sinuses. I suspect the patient has acute sinusitis. Given his uncomfortable appearance I think it's reasonable to initiate antibiotic therapy. Patient also will be started on an intranasal corticosteroid. He was given one injection of IM Toradol. Influenza will be checked. If negative patient will be discharged home with antibiotic prescription. Diagnosis Primary Impression: Acute sinusitis Qualified Codes: J01.00 - Acute maxillary sinusitis, unspecified Patient Instructions: General Instructions Additional Instructions: If you develop severe chest pain, shortness of breath, sweating, lightheadedness , dizziness or difficulty breathing return to the emergency department immediately. Followup with your primary care physician in 2-3 days if your symptoms are not resolved. Med/Other Pt SpecificInfo: Prescription(s) given Scripts Mometasone Nasal [place] (Nasonex Nasal [place]) 50 Mcg/Act Naspr 2 SPRAY EACH NARE DAILY for Allergy Management, #1 BOTTLE 0 Refills Prov: Nadine Bueno MD 09/06/17 Amoxicillin-Clavulanate (Augmentin) 875-125 Mg Tab 1 TAB PO BID for Infection, #10 TAB 0 Refills Prov: Nadine Bueno MD 09/06/17 Disposition: DISCHARGE HOME Condition: Stable Nadine Bueno MD Sep 06, 2017 18:49
[2017-09-06] MEDS ORDERED: KETOROLAC TROMETHAMINE 60 MG/2 ML (IM) VIAL IM ONE (19:00)
[2017-09-06 19:25] VITALS: BP 162/85; PULSE 60; RESP 14; O2SAT 95
[2017-09-06 20:10] VITALS: BP 114/65; PULSE 59; RESP 14; O2SAT 95
[2017-09-06 20:11] VITALS: RESP 14
== END 2017-09-06 20:15 | disposition home or self-care (01) ==
LOC: PHED 17:34
DX: J01.00 Acute maxillary sinusitis, unspecified (principal); I10 Essential (primary) hypertension; E78.00 Pure hypercholesterolemia, unspecified
CPT/HCPCS: 87804; 96372; 99284; J1885

== ENCOUNTER 2017-09-17 10:10 | Emergency (ER) | payer MEDICARE, OTHER ==
[~2017-09-17] VITALS: Ht 182.9 cm; Wt 86.0 kg
[~2017-09-17 10:10] MED LIST changes: +ATOR20TA15 PO; -ATOR40TA16 PO; +AUGM875T3 PO; +LISI-515 PO; -LISI-519 PO; +MOME17I EACH NARE; -OMEGCAP PO; -ROBA750T PO; -TRAM50 PO; -ZOFR4TAB PO
[2017-09-17 10:21] VITALS: BP 140/72; PULSE 67; RESP 16; TEMP 98.4; O2SAT 97
[2017-09-17] MEDS ORDERED: SODIUM CHLOR 0.9% 1000 ML INJ 1,000 ML IV ONE (10:38)
--- NOTE | 2017-09-17 10:42 | PD ---
HPI Chief Complaint: GI Complaint Time Seen by Provider: 10:26 Travel History International Travel<30 days: No Contact w/Intl Traveler<30days: No Traveled to known affect area: No History of Present Illness HPI The patient is a 67-year-old male who presents to the emergency department for lower abdominal pain and diarrhea that started on Wednesday. The patient states he is currently being treated for sinus infection with Augmentin , developed diarrhea on Wednesday. The diarrhea described as loose, brown, without any visible blood. The patient does have a history of previous colitis with C. difficile, required hospitalization at 3 days in the past. The patient states he has been awakening at night with diaphoresis and sweating, but denies any actual chills or fever. The abdominal pain is located lower aspect of the abdomen, intermittent, crampy, associated with diarrhea. He denies any nausea or vomiting, but does note decreased appetite. Symptoms are moderate, possibly exacerbated by taking Augmentin and history of C. difficile, and there are no current alleviating factors. PFSH Past Medical History High Cholesterol: Yes Chest Pain: Yes Diminished Hearing: No Diverticulitis: Yes Gastrointestinal Disorders: Yes (C-DIFF) GERD: Yes Gout: Yes Herniated Disk: Yes (lumbar spine) Hypertension: Yes Pancreatitis: Yes Tetanus Vaccination: < 5 Years Past Surgical History Abdominal Surgery: Yes (REMOVAL OF STONE IN BILE DUCT DAY AFTER RANDA.) Cholecystectomy: Yes Social History Alcohol Use: No Tobacco Use: No (QUIT 2013) Substance Use: No Allergies-Medications (Allergen,Severity, Reaction): Coded Allergies: hydrocodone (Verified Allergy, Intermediate, Rash, 09/17/17) Reported Meds & Prescriptions Reported Meds & Active Scripts Active Nasonex Nasal [place] (Mometasone Furoate) 50 Mcg/Act Naspr 2 [place] EACH NARE DAILY Augmentin (Amoxicillin-Clavulanate) 875-125 Mg Tab 1 Tab PO BID Reported Lisinopril 20 Mg Tab 20 Mg PO BID Atorvastatin (Atorvastatin Calcium) 20 Mg Tab 20 Mg PO HS Allopurinol 100 Mg Tab 100 Mg PO DAILY Omeprazole 20 Mg Tab 20 Mg PO DAILY Review of Systems Except as stated in HPI: all other systems reviewed are Neg General / Constitutional: No: Fever Cardiovascular: Positive: Diaphoresis Respiratory: No: Shortness of Breath Gastrointestinal: Positive: Diarrhea, Abdominal Pain, Loss of Appetite, No: Nausea, Vomiting Genitourinary: No: Decreased Urinary Output Musculoskeletal: Positive: Weakness, No: Myalgias Physical Exam Narrative GENERAL: Awake, alert, nontoxic-appearing 67-year-old male who appears his stated age and is in no acute respiratory distress. SKIN: Focused skin assessment warm/dry. HEAD: Atraumatic. Normocephalic. EYES: No scleral icterus noted. ENT: No nasal bleeding or discharge. Mucous membranes pink and moist. NECK: Trachea midline. No JVD. CARDIOVASCULAR: Regular rate and rhythm. No murmur appreciated. RESPIRATORY: No accessory muscle use. Clear to auscultation. Breath sounds equal bilaterally. GASTROINTESTINAL: Abdomen soft, mild tenderness of the left and right lower quadrants. No guarding or rigidity. MUSCULOSKELETAL: No obvious deformities. No clubbing. No cyanosis. No edema. NEUROLOGICAL: Awake and alert. No obvious cranial nerve deficits. Motor grossly within normal limits. Normal speech. PSYCHIATRIC: Appropriate mood and affect; insight and judgment normal. Data Data Last Documented VS Vital Signs Date Time Temp Pulse Resp B/P (MAP) Pulse Ox O2 Delivery O2 Flow Rate FiO2 09/17/17 11:12 56 20 227/64 (118) 98 Room Air 09/17/17 10:21 98.4 Orders Orders Complete Blood Count With Diff (09/17/17 10:38) Comprehensive Metabolic Panel (09/17/17 10:38) Lipase (09/17/17 10:38) Ct Abd/Pel W/O Iv Contrast (09/17/17 ) Iv Access Insert/Monitor (09/17/17 10:38) Ecg Monitoring (09/17/17 10:38) Oximetry (09/17/17 10:38) Morphine Inj (Morphine Inj) (09/17/17 10:45) Ondansetron Inj (Zofran Inj) (09/17/17 10:45) Sodium Chlor 0.9% 1000 Ml Inj (Ns 1000 M (09/17/17 10:38) Sodium Chloride 0.9% Flush (Ns Flush) (09/17/17 10:45) C Diff Toxin Pcr (09/17/17 10:38) Ed Discharge Order (09/17/17 11:35) Labs Laboratory Tests Test 09/17/17 10:50 White Blood Count 7.0 TH/MM3 Red Blood Count 5.05 MIL/MM3 Hemoglobin 13.5 GM/DL Hematocrit 41.8 % Mean Corpuscular Volume 82.7 FL Mean Corpuscular Hemoglobin 26.8 PG Mean Corpuscular Hemoglobin Concent 32.3 % Red Cell Distribution Width 13.6 % Platelet Count 214 TH/MM3 Mean Platelet Volume 7.7 FL Neutrophils (%) (Auto) 62.1 % Lymphocytes (%) (Auto) 30.0 % Monocytes (%) (Auto) 5.8 % Eosinophils (%) (Auto) 1.1 % Basophils (%) (Auto) 1.0 % Neutrophils # (Auto) 4.3 TH/MM3 Lymphocytes # (Auto) 2.1 TH/MM3 Monocytes # (Auto) 0.4 TH/MM3 Eosinophils # (Auto) 0.1 TH/MM3 Basophils # (Auto) 0.1 TH/MM3 CBC Comment DIFF FINAL Differential Comment Blood Urea Nitrogen 23 MG/DL Creatinine 2.10 MG/DL Random Glucose 90 MG/DL Total Protein 6.9 GM/DL Albumin 3.0 GM/DL Calcium Level 8.5 MG/DL Alkaline Phosphatase 82 U/L Aspartate Amino Transf (AST/SGOT) 22 U/L Alanine Aminotransferase (ALT/SGPT) 26 U/L Total Bilirubin 0.6 MG/DL Sodium Level 144 MEQ/L Potassium Level 3.6 MEQ/L Chloride Level 109 MEQ/L Carbon Dioxide Level 25.9 MEQ/L Anion Gap 9 MEQ/L Estimat Glomerular Filtration Rate 32 ML/MIN Lipase 273 U/L MDM Medical Decision Making Medical Screen Exam Complete: Yes Emergency Medical Condition: Yes Medical Record Reviewed: Yes Interpretation(s) Last Impressions Abdomen/Pelvis CT 09/17/17 0000 Signed Impressions: Service Date/Time: Sunday, September 17, 2017 10:48 - CONCLUSION: 1. No definite abnormality to explain the patient's lower abdominal pain is identified. The inflammatory change which was seen within the mesentery on previous of 07/19/17 is not apparent on today's examination. Sylvester Neal MD Laboratory Tests Test 09/17/17 10:50 White Blood Count 7.0 TH/MM3 Red Blood Count 5.05 MIL/MM3 Hemoglobin 13.5 GM/DL Hematocrit 41.8 % Mean Corpuscular Volume 82.7 FL Mean Corpuscular Hemoglobin 26.8 PG Mean Corpuscular Hemoglobin Concent 32.3 % Red Cell Distribution Width 13.6 % Platelet Count 214 TH/MM3 Mean Platelet Volume 7.7 FL Neutrophils (%) (Auto) 62.1 % Lymphocytes (%) (Auto) 30.0 % Monocytes (%) (Auto) 5.8 % Eosinophils (%) (Auto) 1.1 % Basophils (%) (Auto) 1.0 % Neutrophils # (Auto) 4.3 TH/MM3 Lymphocytes # (Auto) 2.1 TH/MM3 Monocytes # (Auto) 0.4 TH/MM3 Eosinophils # (Auto) 0.1 TH/MM3 Basophils # (Auto) 0.1 TH/MM3 CBC Comment DIFF FINAL Differential Comment Blood Urea Nitrogen 23 MG/DL Creatinine 2.10 MG/DL Random Glucose 90 MG/DL Total Protein 6.9 GM/DL Albumin 3.0 GM/DL Calcium Level 8.5 MG/DL Alkaline Phosphatase 82 U/L Aspartate Amino Transf (AST/SGOT) 22 U/L Alanine Aminotransferase (ALT/SGPT) 26 U/L Total Bilirubin 0.6 MG/DL Sodium Level 144 MEQ/L Potassium Level 3.6 MEQ/L Chloride Level 109 MEQ/L Carbon Dioxide Level 25.9 MEQ/L Anion Gap 9 MEQ/L Estimat Glomerular Filtration Rate 32 ML/MIN Lipase 273 U/L Differential Diagnosis Differential diagnosis includes C. difficile, colitis, diverticulitis, medication side effect from Augmentin, electrolyte abnormality, dehydration, viral syndrome, enteritis. Narrative Course IV was established, labs are drawn and sent, and the patient was placed on cardiac telemetry monitoring and continuous pulse oximetry monitoring. C. difficile PCR from stool was ordered. 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 Noncontrast CT of the abdomen and pelvis was ordered to evaluate for colitis. CT of the abdomen and pelvis is negative, no evidence of colitis. White count is normal. Creatinine was elevated 2.1, reviewed the EMR , the patient's creatinine has very from 1.6 and 1.9 in the past. The patient was unable to provide a stool sample. The patient may have diarrhea secondary to taken Augmentin versus C. difficile. No evidence of colitis. The patient only has one: Augmentin left, he was advised to stop Augmentin. As the patient does have a history of C. difficile, I will place the patient on Flagyl 3 times a day for 10 days. He is advised to follow-up with his primary physician. Clear liquid diet and advance as tolerated. He will be provided a copy of his CT results and lab results at discharge. He is advised to follow-up with his primary physician within the next several days. Diagnosis Primary Impression: Diarrhea in adult patient Patient Instructions: General Instructions Additional Instructions: Please provide a patient a copy of his labs and CT results at discharge. Stop Augmentin. Flagyl as directed. Follow-up with your primary physician. Clear liquid diet and advance as tolerated. Med/Other Pt SpecificInfo: Prescription(s) given, Med Stopped (Stop Augmentin) Scripts Metronidazole (Flagyl) 500 Mg Tab 500 MG PO TID for Infection for 10 Days, TAB 0 Refills Prov: Shaun Gandara MD 09/17/17 Disposition: 01 DISCHARGE HOME Condition: Stable Shaun Gandara MD Sep 17, 2017 10:42
[2017-09-17] MEDS ORDERED: MORPHINE SULFATE 4 MG/ML INJ IV PUSH ONE (10:45)
[2017-09-17] MEDS ORDERED: ONDANSETRON HCL 4 MG/2 ML VIAL IV PUSH ONE (10:45)
[2017-09-17] MEDS ORDERED: SODIUM CHLORIDE 0.9% FLUSH 10 ML FLUSH IVF PRN (10:45)
[2017-09-17 11:01] LABS: AUTOMATED NEUTROPHIL # 4.3 TH/MM3 (1.8-7.7); BASOPHIL # 0.1 TH/MM3 (0-0.2); EOSINOPHIL # 0.1 TH/MM3 (0-0.4); EOSINOPHIL % 1.1 % (0.0-4.0); HEMATOCRIT 41.8 % (39.0-51.0); HEMO FLAGS DIFF FINAL; LYMPHOCYTE # 2.1 TH/MM3 (1.0-4.8); MEAN CELL VOLUME 82.7 FL (80.0-100.0); MEAN CORPUSCULAR HEMOGLOBIN 26.8 PG (27.0-34.0); MEAN CORPUSCULAR HGB CONC 32.3 % (32.0-36.0); MONO % 5.8 % (0.0-8.0); NEUT % 62.1 % (16.0-70.0); PLATELET COUNT 214 TH/MM3 (150-450); RED BLOOD COUNT 5.05 MIL/MM3 (4.50-5.90); RED CELL DISTRIBUTION WIDTH 13.6 % (11.6-17.2)
--- NOTE | 2017-09-17 11:09 | RADRPT ---
EXAM DATE/TIME: 09/17/2017 10:48 [facility] COMPARISON: CT ABDOMEN & PELVIS W/O CONTRAST, July 19, 2017, 2:17. INDICATIONS : Lower abdominal pain. Diarrhea. ORAL CONTRAST: No oral contrast ingested. RADIATION DOSE: 14.73 CTDIvol (mGy) MEDICAL HISTORY : Diverticulitis. Pancreatitis. Gastroesophageal reflux disease.Hypertension. SURGICAL HISTORY : Cholecystectomy. ENCOUNTER: Initial ACUITY: 4 - 6 days PAIN SCALE: 6/10 LOCATION: Bilateral lower quadrant TECHNIQUE: Volumetric scanning of the abdomen and pelvis was performed. Using automated exposure control and ad justment of the mA and/or kV according to patient size, radiation dose was kept as low as reasonably achievable to obtain optimal diagnostic quality images. DICOM format image data is available electro nically for review and comparison. FINDINGS: The limited portion of the lung base visualized is clear. The appearance of the liver, spleen, pancreas and adrenal glands is within normal limits. The left ki dney is normal in appearance. The right kidney demonstrates a 4.4 cm simple cyst. There is no free air or free fluid seen in the upper abdomen. The visualized loops of small and large bowel demonstrate a sizable duodenal diverticulum but are otherwise unremarkable. Imaging through the pelvis is provided. There is no iliac or inguinal adenopathy. No free fluid is id entified. No findings to indicate bowel obstruction are present. The anterior abdominal merida intact. There are degenerative changes with in the lumbar spine. CONCLUSION: 1. No definite abnormality to explain the patient's lower abdominal pain is identified. The inflammat ory change which was seen within the mesentery on previous of 07/19/17 is not apparent on today's exam ination. Sylvester Neal MD on September 17, 2017 at 11:02 Board Certified Radiologist. This report was verified electronically.
[2017-09-17 11:12] VITALS: BP 227/64; PULSE 56; RESP 20; O2SAT 98
[2017-09-17 11:16] LABS: CHLORIDE 109 MEQ/L (98-107); POTASSIUM 3.6 MEQ/L (3.5-5.1); SODIUM (NA) 144 MEQ/L (136-145)
[2017-09-17 11:21] LABS: ANION GAP 9 MEQ/L (5-15); BICARBONATE 25.9 MEQ/L (21.0-32.0)
[2017-09-17 11:22] LABS: BLOOD UREA NITROGEN 23 MG/DL (7-18)
[2017-09-17 11:24] LABS: ALT (GPT) 26 U/L (12-78); AST (GOT) 22 U/L (15-37); GLOMERULAR FILTRATION RATE 32 ML/MIN (>89)
[2017-09-17 11:26] LABS: TOTAL BILIRUBIN ADULT 0.6 MG/DL (0.2-1.0)
[2017-09-17 11:27] LABS: ALKALINE PHOSPHATASE 82 U/L (45-117)
[2017-09-17] MEDS ORDERED: METR-1 PO (11:37)
[2017-09-17 12:14] VITALS: BP 124/68
[2017-09-17 12:50] VITALS: O2SAT 98
[2017-09-17 15:41] LABS: C. DIFF EPI 027 PRESUMPTIVE NEGATIVE (NEGATIVE)
== END 2017-09-17 13:20 | disposition home or self-care (01) ==
LOC: PHED 10:10
DX: R19.7 Diarrhea, unspecified (principal)
CPT/HCPCS: 74176; 80053; 83690; 85025; 87493; 96361; 96374; 96375; 99285; J2270; J2405; J7030

== ENCOUNTER 2017-12-13 18:08 | Emergency (ER) | payer MEDICARE, OTHER ==
[~2017-12-13] VITALS: Ht 182.9 cm; Wt 84.5 kg
[~2017-12-13 18:08] MED LIST changes: +METR-1 PO
[2017-12-13 18:11] VITALS: BP 158/80; PULSE 64; RESP 16; TEMP 98.1; O2SAT 97
--- NOTE | 2017-12-13 21:04 | PD ---
HPI Chief Complaint: Musculoskeletal Complaint Time Seen by Provider: 20:16 Travel History International Travel<30 days: No Contact w/Intl Traveler<30days: No Traveled to known affect area: No History of Present Illness HPI 59-year-old male presents to the ED for evaluation of 3 day history of right shoulder pain. Gradual onset. Patient states that he has been helping a friend move but can identify no acute injury. Denies numbness, tingling, weakness, limitations to range of motion of the extremity. Denies previous history of injury. No treatment attempted at home. While awaiting exam in the ED the patient began to complain of numbness and tingling on the right side of his head. Denies headache, dizziness, vision changes, unilateral weakness, difficulties with speech. PFSH Past Medical History High Cholesterol: Yes Chest Pain: Yes Diminished Hearing: No Diverticulitis: Yes Gastrointestinal Disorders: Yes (C-DIFF) GERD: Yes Gout: Yes Herniated Disk: Yes (lumbar spine) Hypertension: Yes Immunizations Current: Yes Pancreatitis: Yes Tetanus Vaccination: < 5 Years Influenza Vaccination: No Past Surgical History Abdominal Surgery: Yes (REMOVAL OF STONE IN BILE DUCT DAY AFTER RANDA.) Cholecystectomy: Yes Social History Alcohol Use: No Tobacco Use: No (QUIT 2013) Substance Use: No Allergies-Medications (Allergen,Severity, Reaction): Coded Allergies: hydrocodone (Verified Allergy, Intermediate, Rash, 12/13/17) Reported Meds & Prescriptions Reported Meds & Active Scripts Active Tylenol (Acetaminophen) 325 Mg Tab 650 Mg PO Q6H PRN Reported Lisinopril 20 Mg Tab 20 Mg PO BID Atorvastatin (Atorvastatin Calcium) 20 Mg Tab 20 Mg PO HS Omeprazole 20 Mg Tab 20 Mg PO DAILY Review of Systems Except as stated in HPI: all other systems reviewed are Neg Physical Exam Narrative GENERAL: Well-nourished, well-developed patient. SKIN: Focused skin assessment warm/dry. HEAD: Normocephalic. Atraumatic. No tenderness to palpation of the scalp. No sensory deficit noted. EYES: No scleral icterus. No injection or drainage. NECK: Supple, trachea midline. No JVD or lymphadenopathy. CARDIOVASCULAR: Regular rate and rhythm without murmurs, gallops, or rubs. RESPIRATORY: Breath sounds equal bilaterally. No accessory muscle use. GASTROINTESTINAL: Abdomen soft, non-tender, nondistended. MUSCULOSKELETAL: No cyanosis, or edema. FOCUSED RIGHT UPPER EXTREMITY EXAM: 2+ radial pulse. Tender to palpation of the acromioclavicular joint. Pain elicited with external rotation. Pain elicited with abduction to 90. Strength in all muscle groups of the upper arm. Neurovascularly intact distally. NEUROLOGICAL: Awake and alert. Cranial nerves II through XII intact. Motor and sensory grossly within normal limits. Five out of 5 muscle strength in all muscle groups. Normal speech. BACK: Nontender without obvious deformity. No CVA tenderness. Data Data Last Documented VS Vital Signs Date Time Temp Pulse Resp B/P (MAP) Pulse Ox O2 Delivery O2 Flow Rate FiO2 12/13/17 18:11 98.1 64 16 158/80 (106) [address] Brain W/O Iv Contrast(Rout) (12/13/17 20:16) Shoulder, Complete (>2vws) (12/13/17 20:16) Ice/Cold Pack (12/13/17 20:16) Ibuprofen (Motrin) (12/13/17 21:15) Ed Discharge Order (12/13/17 21:22) MDM Medical Decision Making Medical Screen Exam Complete: Yes Emergency Medical Condition: Yes Differential Diagnosis Musculoskeletal pain versus rotator cuff tendinitis versus shingles versus other Narrative Course 59-year-old male presents to the ED for evaluation of 3 day history of right shoulder pain. Gradual onset. Patient states that he has been helping a friend move but can identify no acute injury. Denies numbness, tingling, weakness, limitations to range of motion of the extremity. While awaiting exam in the ED the patient began to complain of numbness and tingling on the right side of his head. Vitals reviewed. Physical exam reveals no focal neurologic deficits. He's has some tenderness of the right acromioclavicular joint and pain with external rotation or abduction of the shoulder. I suspect rotator cuff tendinitis or tear. Patient was administered [address] brain no acute abnormalities per radiology read. X-ray shoulder: No acute bony injury per radiology read. The patient does have a single erythematous pustule on the right side of the neck, this could be early shingles. I discussed this with the patient and instructed him to return to the ED should the symptoms worsen. Instructed to rest, ice the shoulder and take Tylenol as needed, follow up with the orthopedist if symptoms do not improve. He indicated understanding of instructions and is agreeable to care plan. The patient is stable and discharged home. Diagnosis Primary Impression: Shoulder pain, right Qualified Codes: M25.511 - Pain in right shoulder Referrals: Orthopedist Patient Instructions: General Instructions, Shoulder Pain (ED) Additional Instructions: Rest, hydrate. Take medications as prescribed. Return to normal, gentle activity as tolerated. No heavy lifting for 1 week. Cold compresses applied to the area 10-15 minutes per session 3-4 times a day may help to improve pain symptoms. Follow-up with the orthopedist. Return to the ED for worsening symptoms or any urgent or emergent medical condition. Med/Other Pt SpecificInfo: Prescription(s) given Scripts Acetaminophen (Tylenol) 325 Mg Tab 650 MG PO Q6H Y for PAIN SCALE 1 TO 10, #12 TAB 0 Refills Prov: Romelia Cárdenas MD 12/13/17 Disposition: 01 DISCHARGE HOME Condition: Stable Nicol Rivera Dec 13, 2017 21:04
[2017-12-13] MEDS ORDERED: IBUPROFEN 600 MG TAB PO ONE (21:15)
--- NOTE | 2017-12-13 21:15 | RADRPT ---
EXAM DATE/TIME: 12/13/2017 20:28 [facility] COMPARISON: No previous studies available for comparison. INDICATIONS : Right shoulder pain with no history of trauma. MEDICAL HISTORY : None. SURGICAL HISTORY : None. ENCOUNTER: Initial ACUITY: 3 days PAIN SCORE: 10/10 LOCATION: Right posterior FINDINGS: Multiple view examination of the right shoulder demonstrates no evidence of fracture or dislocation. The glenohumeral and acromioclavicular joints are maintained. There is normal range of motion betwe en internal and external rotation. Bony mineralization is normal. CONCLUSION: 1. No acute findings. Aubrey Peres MD on December 13, 2017 at 21:12 Board Certified Radiologist. This report was verified electronically.
[2017-12-13] MEDS ORDERED: TYLE325T PO (21:21)
--- NOTE | 2017-12-13 21:24 | RADRPT ---
EXAM DATE/TIME: 12/13/2017 20:45 [facility] COMPARISON: No previous studies available for comparison. INDICATIONS : Right facial, scalp and upper extremity numbness. RADIATION DOSE: 65.34 CTDIvol (mGy) MEDICAL HISTORY : Hypertension. SURGICAL HISTORY : None. ENCOUNTER: Initial ACUITY: 1 day PAIN SCALE: 4/10 LOCATION: Right cranial TECHNIQUE: Multiple contiguous axial images were obtained of the head. Using automated exposure control and adj ustment of the mA and/or kV according to patient size, radiation dose was kept as low as reasonably a chievable to obtain optimal diagnostic quality images. DICOM format image data is available electro nically for review and comparison. FINDINGS: CEREBRUM: The ventricles are normal for age. No evidence of midline shift, mass lesion, hemorrhage or acute in farction. No extra-axial fluid collections are seen. POSTERIOR FOSSA: The cerebellum and brainstem are intact. The 4th ventricle is midline. The cerebellopontine angle i s unremarkable. EXTRACRANIAL: The visualized portion of the orbits is intact. SKULL: The calvaria is intact. No evidence of skull fracture. CONCLUSION: 1. No acute intracranial abnormalities. Aubrey Peres MD on December 13, 2017 at 21:21 Board Certified Radiologist. This report was verified electronically.
== END 2017-12-13 21:31 | disposition home or self-care (01) ==
LOC: PHED 18:08 → PHEFT 21:31
DX: M25.511 Pain in right shoulder (principal); R20.2 Paresthesia of skin; R20.0 Anesthesia of skin; I10 Essential (primary) hypertension; E78.00 Pure hypercholesterolemia, unspecified; K21.9 Gastro-esophageal reflux disease without esophagitis; Z87.19 Personal history of other diseases of the digestive system; Z87.39 Personal history of other diseases of the musculoskeletal system and connective tissue
CPT/HCPCS: 70450; 73030; 99283

== ENCOUNTER 2018-02-10 18:42 | Emergency (ER) | payer MEDICARE, OTHER ==
[~2018-02-10] VITALS: Ht 182.9 cm; Wt 83.0 kg
[~2018-02-10 18:42] MED LIST changes: -ALLO100T PO; -AUGM875T3 PO; -METR-1 PO; -MOME17I EACH NARE; +TYLE325T PO
[2018-02-10 18:53] VITALS: BP 126/74; PULSE 79; RESP 16; TEMP 98.6; O2SAT 98
[2018-02-10 19:43] LABS: BILIRUBIN, URINE NEG (NEG); BLOOD, URINE TRACE (NEG); GLUCOSE,URINE NEG (NEG); KETONE, URINE TRACE mg/dL (NEG); NITRITE,URINE NEG (NEG); URINE COLOR YELLOW (YELLW/STRAW); URINE LEUKOCYTE ESTERASE NEG (NEG)
[2018-02-10 19:50] LABS: SQUAMOUS EPITHELIAL CELL URINE 0-5 /hpf (0-5)
[2018-02-10] MEDS ORDERED: ONDANSETRON HCL 4 MG/2 ML VIAL IVP ONE (20:15)
[2018-02-10] MEDS ORDERED: SODIUM CHLORIDE 0.9% FLUSH 10 ML FLUSH IV FLUSH PRN (20:15)
[2018-02-10] MEDS ORDERED: SODIUM CHLOR 0.9% 1000 ML INJ 1,000 ML IV SCH (20:15)
--- NOTE | 2018-02-10 20:21 | PD ---
HPI Chief Complaint: Abdominal Pain Time Seen by Provider: 20:09 Travel History International Travel<30 days: No Contact w/Intl Traveler<30days: No Traveled to known affect area: No History of Present Illness HPI Patient is a 67 year old male with history of cholecystectomy, presents to emergency room with complaints of lower abdominal pain. Patient reports that he was eating lasagna prior to onset of symptoms, reports that 15 minutes after eating lasagna, he began to have mild to moderate sharp and stabbing lower abdominal pain. Patient reports that pain is worse to his RLQ. Reports feeling nauseous with no vomiting. Denies constipation or diarrhea, patient did have a bowel movement in the ER waiting room. Denies fever/chills. No other complaints. PFSH Past Medical History Cardiovascular Problems: Yes (htn on meds) High Cholesterol: Yes Chest Pain: Yes Diminished Hearing: No Diverticulitis: Yes Gastrointestinal Disorders: Yes (C-DIFF) GERD: Yes Gout: Yes Herniated Disk: Yes (lumbar spine) Hypertension: Yes Immunizations Current: Yes Pancreatitis: Yes Past Surgical History Abdominal Surgery: Yes (REMOVAL OF STONE IN BILE DUCT DAY AFTER RANDA.) Cholecystectomy: Yes Social History Alcohol Use: No Tobacco Use: No (QUIT 2013) Substance Use: No Allergies-Medications (Allergen,Severity, Reaction): Coded Allergies: hydrocodone (Verified Allergy, Intermediate, Rash, 02/10/18) Reported Meds & Prescriptions Reported Meds & Active Scripts Active Zofran (Ondansetron HCl) 4 Mg Tab 4 Mg PO Q6HR PRN Tylenol (Acetaminophen) 325 Mg Tab 650 Mg PO Q6H PRN Reported [Tylenol Pm] 1 Tab PO HS Lisinopril 20 Mg Tab 20 Mg PO BID Atorvastatin (Atorvastatin Calcium) 20 Mg Tab 20 Mg PO HS Omeprazole 20 Mg Tab 20 Mg PO DAILY Review of Systems General / Constitutional: No: Fever Eyes: No: Visual changes HENT: No: Headaches Cardiovascular: No: Chest Pain or Discomfort Respiratory: No: Shortness of Breath Gastrointestinal: Positive: Nausea, Abdominal Pain, No: Vomiting, Diarrhea, Constipation Genitourinary: No: Dysuria Musculoskeletal: No: Pain Skin: No Rash Neurologic: No: Weakness Psychiatric: No: Depression Endocrine: No: Polydipsia Hematologic/Lymphatic: No: Easy Bruising Physical Exam Narrative GENERAL: Mild distress SKIN: Focused skin assessment warm/dry. HEAD: Atraumatic. Normocephalic. EYES: Pupils equal and round. No scleral icterus. No injection or drainage. ENT: No nasal bleeding or discharge. Mucous membranes pink and moist. NECK: Trachea midline. No JVD. CARDIOVASCULAR: Regular rate and rhythm. No murmur appreciated. RESPIRATORY: No accessory muscle use. Clear to auscultation. Breath sounds equal bilaterally. GASTROINTESTINAL: Abdomen soft, increased tenderness to lower abdomen with greatest tenderness to rlq, patient with guarding on exam, nondistended. Hepatic and splenic margins not palpable. MUSCULOSKELETAL: No obvious deformities. No clubbing. No cyanosis. No edema. NEUROLOGICAL: Awake and alert. No obvious cranial nerve deficits. Motor grossly within normal limits. Normal speech. PSYCHIATRIC: Appropriate mood and affect; insight and judgment normal. Data Data Last Documented VS Vital Signs Date Time Temp Pulse Resp B/P (MAP) Pulse Ox O2 Delivery O2 Flow Rate FiO2 02/10/18 18:53 98.6 79 16 126/74 (91) 98 Orders Orders Urinalysis - C+S If Indicated (02/10/18 19:07) Complete Blood Count With Diff (02/10/18 20:15) Comprehensive Metabolic Panel (02/10/18 20:15) Prothrombin Time / Inr (Pt) (02/10/18 20:15) Act Partial Throm Time (Ptt) (02/10/18 20:15) Iv Access Insert/Monitor (02/10/18 20:15) Ecg Monitoring (02/10/18 20:15) Oximetry (02/10/18 20:15) Ondansetron Inj (Zofran Inj) (02/10/18 20:15) Sodium Chlor 0.9% 1000 Ml Inj (Ns 1000 M (02/10/18 20:15) Sodium Chloride 0.9% Flush (Ns Flush) (02/10/18 20:15) Ct Abd/Pel W/O Iv Contrast (02/10/18 21:09) Labs Laboratory Tests Test 02/10/18 19:00 02/10/18 20:25 Urine Color YELLOW Urine Turbidity CLEAR Urine pH 5.0 Urine Specific [place] GREATER/EQUAL 1.030 Urine Protein TRACE mg/dL Urine Glucose (UA) NEG mg/dL Urine Ketones TRACE mg/dL Urine Occult Blood TRACE Urine Nitrite NEG Urine Bilirubin NEG Urine Urobilinogen 0.2 MG/DL Urine Leukocyte Esterase NEG Urine RBC 3-5 /hpf Urine WBC 3-5 /hpf Urine Squamous Epithelial Cells 0-5 /hpf Urine Bacteria NONE /hpf Microscopic Urinalysis Comment CULT NOT INDICATED White Blood Count 6.8 TH/MM3 Red Blood Count 5.10 MIL/MM3 Hemoglobin 13.3 GM/DL Hematocrit 41.9 % Mean Corpuscular Volume 82.0 FL Mean Corpuscular Hemoglobin 26.1 PG Mean Corpuscular Hemoglobin Concent 31.8 % Red Cell Distribution Width 12.9 % Platelet Count 175 TH/MM3 Mean Platelet Volume 8.0 FL Neutrophils (%) (Auto) 54.2 % Lymphocytes (%) (Auto) 32.9 % Monocytes (%) (Auto) 7.0 % Eosinophils (%) (Auto) 1.6 % Basophils (%) (Auto) 4.3 % Neutrophils # (Auto) 3.6 TH/MM3 Lymphocytes # (Auto) 2.3 TH/MM3 Monocytes # (Auto) 0.5 TH/MM3 Eosinophils # (Auto) 0.1 TH/MM3 Basophils # (Auto) 0.3 TH/MM3 CBC Comment DIFF FINAL Differential Comment Prothrombin Time 10.6 SEC Prothromb Time International Ratio 1.0 RATIO Activated Partial Thromboplast Time 25.8 SEC Blood Urea Nitrogen 21 MG/DL Creatinine 1.90 MG/DL Random Glucose 108 MG/DL Total Protein 7.0 GM/DL Albumin 3.4 GM/DL Calcium Level 8.8 MG/DL Alkaline Phosphatase 106 U/L Aspartate Amino Transf (AST/SGOT) 26 U/L Alanine Aminotransferase (ALT/SGPT) 26 U/L Total Bilirubin 0.3 MG/DL Sodium Level 144 MEQ/L Potassium Level 4.0 MEQ/L Chloride Level 112 MEQ/L Carbon Dioxide Level 24.8 MEQ/L Anion Gap 7 MEQ/L Estimat Glomerular Filtration Rate 35 ML/MIN [facility] Medical Decision Making Medical Screen Exam Complete: Yes Emergency Medical Condition: Yes Medical Record Reviewed: Yes Interpretation(s) Vital Signs Date Time Temp Pulse Resp B/P (MAP) Pulse Ox O2 Delivery O2 Flow Rate FiO2 02/10/18 18:53 98.6 79 16 126/74 (73) 98 Differential Diagnosis Gastritis, gastroenteritis, appendicitis, diverticulitis Narrative Course During the course of the patients emergency department visit, the patients history, examination, and differential diagnosis were reviewed with the patient. The patient was placed on a adult education manager with oximetry and frequent blood pressure monitoring. The patient had an IV access obtained and blood work sent for analysis. The patient was initially provided IVF as well as IV zofran The patients laboratory studies were reviewed and remarkable for: CBC & BMP Diagram 02/10/18 20:25 Total Protein 7.0, Albumin 3.4, Calcium Level 8.8, Alkaline Phosphatase 106, Aspartate Amino Transf (AST/SGOT) 26, Alanine Aminotransferase (ALT/SGPT) 26, Total Bilirubin 0.3 Patient's creatinine is 1.90 which is at baseline, patient with history of CKD stage III Radiology studies were reviewed and remarkable for: Last Impressions Abdomen/Pelvis CT 02/10/182108 Signed Impressions: Service Date/Time: January 21:18 - CONCLUSION: 1. Mild diverticulosis again noted with no inflammatory change or obstruction. No oral contrast was given. The appendix is not distinctly visualized. 2. Status post cholecystectomy. 3. Right renal cyst again noted. Elfego Rolon MD Patient reevaluated, patient has resolution of abdominal pain. CT the abdomen pelvis is not to complete visualize the appendix, patient with no leukocytosis, patient with resolution of right lower quadrant abdominal pain. Signs and symptoms of an acute abdomen and when to return to the emergency room was reviewed and patient detail. Patient was appreciative of care. Diagnosis Primary Impression: Abdominal pain Qualified Codes: R10.30 - Lower abdominal pain, unspecified Additional Impression: Nausea & vomiting Qualified Codes: R11.2 - Nausea with vomiting, unspecified Patient Instructions: General Instructions Additional Instructions: Please provide patient with a copy of their lab work and studies at discharge* * Please follow up with your primary care doctor in 1-2 days Return to the ER if symptoms worsen or progress or if you develop any fever/ chills Return to the ER as needed Med/Other Pt SpecificInfo: Prescription(s) given Scripts Ondansetron (Zofran) 4 Mg Tab 4 MG PO Q6HR Y for NAUSEA OR VOMITING, #20 TAB 0 Refills Prov: Evie Urena DO 02/10/18 Disposition: 01 DISCHARGE HOME Condition: Stable Evie Urena DO Feb 10, 2018 20:21
[2018-02-10 20:42] LABS: AUTOMATED NEUTROPHIL # 3.6 TH/MM3 (1.8-7.7); BASOPHIL # 0.3 TH/MM3 (0-0.2); BASOPHIL % 4.3 % (0.0-2.0); EOSINOPHIL # 0.1 TH/MM3 (0-0.4); EOSINOPHIL % 1.6 % (0.0-4.0); HEMATOCRIT 41.9 % (39.0-51.0); HEMOGLOBIN 13.3 GM/DL (13.0-17.0); LYMPH % 32.9 % (9.0-44.0); LYMPHOCYTE # 2.3 TH/MM3 (1.0-4.8); MEAN CORPUSCULAR HEMOGLOBIN 26.1 PG (27.0-34.0); MEAN CORPUSCULAR HGB CONC 31.8 % (32.0-36.0); MONOCYTE # 0.5 TH/MM3 (0-0.9); NEUT % 54.2 % (16.0-70.0); PLATELET COUNT 175 TH/MM3 (150-450); RED CELL DISTRIBUTION WIDTH 12.9 % (11.6-17.2); WHITE BLOOD COUNT 6.8 TH/MM3 (4.0-11.0)
[2018-02-10] MEDS ORDERED: TYLENOL PM PO (20:42)
[2018-02-10 20:51] LABS: CHLORIDE 112 MEQ/L (98-107); SODIUM (NA) 144 MEQ/L (136-145)
[2018-02-10 20:54] LABS: ALBUMIN 3.4 GM/DL (3.4-5.0); BICARBONATE 24.8 MEQ/L (21.0-32.0); CALCIUM 8.8 MG/DL (8.5-10.1); GLUCOSE,RANDOM 108 MG/DL (74-106)
[2018-02-10 20:55] LABS: BLOOD UREA NITROGEN 21 MG/DL (7-18)
[2018-02-10 20:56] LABS: PROTHROMBIN TIME - PATIENT 10.6 SEC (9.8-11.6)
[2018-02-10 20:57] LABS: ALT (GPT) 26 U/L (12-78)
[2018-02-10 20:58] LABS: AST (GOT) 26 U/L (15-37); GLOMERULAR FILTRATION RATE 35 ML/MIN (>89)
[2018-02-10 20:59] LABS: TOTAL BILIRUBIN ADULT 0.3 MG/DL (0.2-1.0)
[2018-02-10 21:00] LABS: ALKALINE PHOSPHATASE 106 U/L (45-117)
--- NOTE | 2018-02-10 21:45 | RADRPT ---
EXAM DATE/TIME: 02/10/2018 21:18 [facility] COMPARISON: CT ABDOMEN & PELVIS W/O CONTRAST, September 17, 2017, 10:48. INDICATIONS : Right lower quadrant pain. ORAL CONTRAST: No oral contrast ingested. RADIATION DOSE: 16.30 CTDIvol (mGy) MEDICAL HISTORY : Diverticulitis. Pancreatitis. Gastroesophageal reflux disease.Renal failure. SURGICAL HISTORY : Cholecystectomy. ENCOUNTER: Initial ACUITY: 1 day PAIN SCALE: 6/10 LOCATION: Right lower quadrant TECHNIQUE: Volumetric scanning of the abdomen and pelvis was performed. Using automated exposure control and ad justment of the mA and/or kV according to patient size, radiation dose was kept as low as reasonably achievable to obtain optimal diagnostic quality images. DICOM format image data is available electro nically for review and comparison. FINDINGS: LOWER LUNGS: The visualized lower lungs are clear. LIVER: Homogeneous density without lesion. There is no dilation of the biliary tree. Status post cholecyste ctomy. A tear is noted in a portion of the central biliary system. SPLEEN: Normal size without lesion. PANCREAS: Within normal limits. KIDNEYS: Normal in size and shape. There is no solid mass, stone, or hydronephrosis. A cyst is again noted ex tending off the upper pole the right kidney. ADRENAL GLANDS: Within normal limits. VASCULAR: There is no aortic aneurysm. BOWEL/MESENTERY: No oral contrast was given limiting sensitivity. There are scattered diverticuli greatest in the sigm oid colon with no definite inflammatory change. The stomach, small bowel, and colon demonstrate no ac soco abnormality. There is no free intraperitoneal air or fluid. ABDOMINAL WALL: Within normal limits. RETROPERITONEUM: There is no lymphadenopathy. BLADDER: No wall thickening or mass. REPRODUCTIVE: Within normal limits. INGUINAL: There is no lymphadenopathy or hernia. MUSCULOSKELETAL: Within normal limits for patient age. CONCLUSION: 1. Mild diverticulosis again noted with no inflammatory change or obstruction. No oral contrast was g iven. The appendix is not distinctly visualized. 2. Status post cholecystectomy. 3. Right renal cyst again noted. Elfego Rolon MD on February 10, 2018 at 21:38 Board Certified Radiologist. This report was verified electronically.
[2018-02-10] MEDS ORDERED: ZOFR4TAB PO (22:01)
[2018-02-10 22:47] VITALS: BP 116/72; PULSE 56; RESP 16; O2SAT 97
[2018-02-11] MEDS ORDERED: DIPH25TA31 PO (12:48)
== END 2018-02-10 22:56 | disposition home or self-care (01) ==
LOC: PHED 18:42 → PHEDA 22:04 → UNDOADMOB 22:04 → PHED 22:56
DX: R10.30 Lower abdominal pain, unspecified (principal); R11.2 Nausea with vomiting, unspecified; I12.9 Hypertensive chronic kidney disease with stage 1 through stage 4 chronic kidney disease, or unspecified chronic kidney disease; N18.3 Chronic kidney disease, stage 3 (moderate); K21.9 Gastro-esophageal reflux disease without esophagitis; E78.00 Pure hypercholesterolemia, unspecified; N28.1 Cyst of kidney, acquired; Z87.891 Personal history of nicotine dependence
CPT/HCPCS: 74176; 80053; 81001; 85025; 85610; 85730; 96361; 96374; 99284; J2405; J7030

== ENCOUNTER 2018-02-27 10:39 | Emergency (ER) | payer MEDICARE, OTHER ==
[~2018-02-27] VITALS: Ht 182.9 cm; Wt 88.0 kg
[~2018-02-27 10:39] MED LIST changes: +DIPH25TA31 PO; +ZOFR4TAB PO
[2018-02-27 10:45] VITALS: BP 154/74; PULSE 59; RESP 20; TEMP 97.6; O2SAT 99
--- NOTE | 2018-02-27 11:31 | PD ---
HPI Chief Complaint: Back/ Neck Pain or Injury Time Seen by Provider: 11:09 Travel History International Travel<30 days: No Contact w/Intl Traveler<30days: No Traveled to known affect area: No History of Present Illness HPI This patient complains of back pain. Pain is in the center of his upper back. He has been had it for about a week. No specific injury. If he presses the area or twists his torso in either direction it reproduces the pain reliably. He is not short of breath. No fever. PFSH Past Medical History Anxiety: Yes Cancer: Yes (SKIN) Cardiovascular Problems: Yes (htn on meds) High Cholesterol: Yes Chest Pain: Yes Diminished Hearing: No Diverticulitis: Yes Gastrointestinal Disorders: Yes (C-DIFF) GERD: Yes Gout: Yes Herniated Disk: Yes (lumbar spine) Hypertension: Yes Immunizations Current: Yes (SHINGLES SHOT) Pancreatitis: Yes Pneumonia: Yes Renal Failure: Yes (STAGE 2) Ulcer: Yes (GASTRIC) Past Surgical History Abdominal Surgery: Yes (REMOVAL OF STONE IN BILE DUCT DAY AFTER RANDA.) Cholecystectomy: Yes Other Surgery: Yes (SKIN CA: SQUAMOUS CELL REMOVED FROM BACK: JANUARY 2018) Social History Alcohol Use: No Tobacco Use: No (QUIT 2013) Substance Use: No Allergies-Medications (Allergen,Severity, Reaction): Coded Allergies: hydrocodone (Verified Allergy, Intermediate, Rash, 02/10/18) Reported Meds & Prescriptions Reported Meds & Active Scripts Active Tylenol-Codeine #3 (Acetaminophen-Codeine) 300-30 mg Tab 1 Tab PO Q6H PRN Zofran (Ondansetron HCl) 4 Mg Tab 4 Mg PO Q6HR PRN Tylenol (Acetaminophen) 325 Mg Tab 650 Mg PO Q6H PRN Reported Acetaminophen Pm Caplet (Acetaminophen/Diphenhydramine) 500 Mg-25 Mg Tablet 1 Tab PO HS Lisinopril 20 Mg Tab 20 Mg PO BID Atorvastatin (Atorvastatin Calcium) 20 Mg Tab 20 Mg PO HS Omeprazole 20 Mg Tab 20 Mg PO DAILY Review of Systems General / Constitutional: No: Fever HENT: No: Headaches Respiratory: No: Cough Gastrointestinal: No: Abdominal Pain Physical Exam Narrative GASTROINTESTINAL: Abdomen soft, non-tender, nondistended. Positive bowel sounds. No hepato-splenomegaly, or palpable masses. No guarding. SKIN: Focused skin assessment reveals no rash or ulcers. Skin is warm and dry. Palpation shows no induration or nodules. RESPIRATORY: Respiratory effort unlabored, no retractions or use of accessory muscles. Breath sounds are clear and symmetric. Musculoskeletal: Patient is readily reproducible tenderness in both trapezius areas as well as the middle of his upper back. No objective findings on exam Data Data Last Documented VS Vital Signs Date Time Temp Pulse Resp B/P (MAP) Pulse Ox O2 Delivery O2 Flow Rate FiO2 02/27/18 10:45 97.6 59 20 154/74 (100) 99 Orders Orders Chest, Single Ap (02/27/18 ) [facility] Medical Decision Making Medical Screen Exam Complete: Yes Emergency Medical Condition: Yes Medical Record Reviewed: Yes Differential Diagnosis Trapezius strain, disc herniation, sciatica Narrative Course I have reviewed the patient's electronic medical record. Patient had a thoracic CT 7 months ago that showed no evidence of thoracic aortic aneurysm Presentation is consistent with musculoskeletal pain. Is readily reproducible with palpation or movement of his torso. It includes both trapezius I wrote him a dozen Tylenol 3 He should call his family physician tomorrow for reevaluation He has no neurologic complaints or deficit No shortness of breath or fever I reviewed his chest x-ray which is normal Diagnosis Primary Impression: Musculoskeletal back pain Additional Instructions: The patient was advised to follow up with their physician and return if they worsen. The patient was warned about potential sedation for the medications they will receive on prescription. Med/Other Pt SpecificInfo: Prescription(s) given Scripts Acetaminophen-Codeine (Tylenol-Codeine #3) 300-30 mg Tab 1 TAB PO Q6H Y for PAIN, #12 TAB 0 Refills Prov: Ryan Sánchez MD 02/27/18 Disposition: 01 DISCHARGE HOME Condition: Stable Ryan Sánchez MD Feb 27, 2018 11:31
[2018-02-27] MEDS ORDERED: TYLETAB34 PO (11:32)
--- NOTE | 2018-02-27 11:47 | RADRPT ---
EXAM DATE/TIME: 02/27/2018 11:34 [facility] COMPARISON: CHEST SINGLE AP, July 02, 2017, 7:18. INDICATIONS : Shortness of breath. Upper back pain between shoulder blades. MEDICAL HISTORY : None. SURGICAL HISTORY : None. ENCOUNTER: Initial ACUITY: 2 weeks PAIN SCORE: 10/10 LOCATION: Bilateral chest FINDINGS: A single view of the chest demonstrates the lungs to be symmetrically aerated without evidence of mas s, infiltrate or effusion. The cardiomediastinal contours are unremarkable. Osseous structures are intact. CONCLUSION: No acute disease. Darian Wu MD on February 27, 2018 at 11:44 Board Certified Radiologist. This report was verified electronically.
== END 2018-02-27 12:40 | disposition home or self-care (01) ==
LOC: NEPD 10:39
DX: M54.6 Pain in thoracic spine (principal); F41.9 Anxiety disorder, unspecified; E78.00 Pure hypercholesterolemia, unspecified; K21.9 Gastro-esophageal reflux disease without esophagitis; I12.9 Hypertensive chronic kidney disease with stage 1 through stage 4 chronic kidney disease, or unspecified chronic kidney disease; N18.2 Chronic kidney disease, stage 2 (mild); Z85.828 Personal history of other malignant neoplasm of skin; Z87.891 Personal history of nicotine dependence
CPT/HCPCS: 71045; 99283

== ENCOUNTER 2018-05-27 17:57 | Observation (INO) ==
--- NOTE | 2018-05-27 19:26 | ED ---
HPI General Chief complaint: Urogenital-Male Stated complaint: c/o blood in urine Time Seen by Provider: 05/27/18 19:19 Source: patient and old records reviewed Mode of arrival: ambulatory Limitations: no limitations History of Present Illness HPI narrative: pt has had hematuria today . no clots no dysuria , he just saw urine was red time 2 times today ... . 2 weeks ago he had a colonoscopy with colon wall biopsy that was benign, but had 2 episodes of bleeding the day after that procedure , it resolved without intervention .. He called his surgeon who was aware 2 weeks ago , he did not contact anyone today,, he is not on anticoagulation , he had surgery to remove GB out 3 years ago then had second surgery for retained stone , He also has stage 2 renal disease . HE has no urologfist and no commercial makeup artist , Dr Mijares is his PCP Onset (ago): hour(s) Radiation: non-radiation Severity: moderate Associated symptoms: denies other symptoms Related Data Allergies Allergy/AdvReac Type Severity Reaction Status Date / Time hydrocodone Allergy Intermediate Rash Verified 05/27/18 18:02 Review of Systems Except as stated in HPI: all other systems reviewed are negative Genitourinary Reports hematuria, Denies genital pain, Denies dysuria, Denies flank pain, Denies penile discharge, Denies scrotal swelling, Denies urinary frequency and Denies urinary urgency [facility] Social History Social History Substance History: No History of Abuse Second Hand Smoke Exposure: No Smoking Status: Never smoker How Often Do You Have a Drink Containing Alcohol: Never Recent Travel in [facility] within the Last 8 Weeks: No Recent Out of Country Travel within the Last 8 Weeks: No Exam Narrative Exam Narrative: GENERAL: no acute distress, no pain ... urine in bedside bottle not gross hematuria SKIN: Warm and dry. HEAD: Atraumatic. Normocephalic. EYES: Pupils equal and round. No scleral icterus. No injection or drainage. ENT: No nasal bleeding or discharge. Mucous membranes pink and moist. NECK: Trachea midline. No JVD. CARDIOVASCULAR: Regular rate and rhythm. RESPIRATORY: No accessory muscle use. Clear to auscultation. Breath sounds equal bilaterally. GASTROINTESTINAL: Abdomen slight mild suprapubic pain , soft, , nondistended. Hepatic and splenic margins not palpable. MUSCULOSKELETAL: Extremities without clubbing, cyanosis, or edema. No obvious deformities. NEUROLOGICAL: Awake and alert. No obvious cranial nerve deficits. Motor grossly within normal limits. Five out of 5 muscle strength in the arms and legs. Normal speech. PSYCHIATRIC: Appropriate mood and affect; insight and judgment normal. Course Initial Documented Vital Signs Temperature 98.8 F 05/27/18 18:02 Pulse Rate 65 05/27/18 18:02 Respiratory Rate 16 05/27/18 18:02 Blood Pressure 183/86 H 05/27/18 18:02 Pulse Oximetry 97 05/27/18 18:02 Last Documented Vital Signs Temperature 98.8 F 05/27/18 18:02 Pulse Rate 72 05/27/18 21:51 Respiratory Rate 16 05/27/18 21:51 Blood Pressure 163/87 H 05/27/18 21:51 Pulse Oximetry 99 05/27/18 21:51 Medical Decision Making MDM Narrative Medical decision making narrative: Patient's urine is sent for analysis has innumerable red cells but only a few white cells consider infection as a cause of the hematuria. CAT scan is done and shows a 1.4 cm dilation of the distal ureter on the right and it is possible that it was affected by the biopsy done on the colon is possible that it has coagulated after the initial bleeding 2 weeks ago and today the patient doing a lot of strenuous work around the house may have dislodged a clot and now he really bled I will admit to [facility] UROLOGY conslr for consult in the morning Differential Diagnosis Differential Diagnosis: Post operative procedural complication with hematuria versus UTI with hematuria cystitis possible kidney stone possible bladder infection possible other Lab Data Result diagrams: 05/27/18 19:26 05/27/18 19:26 Lab Results 05/27/18 05/27/18 05/27/18 Range/Units 19:23 19:26 19:26 CBC w Diff Auto diff final WBC 6.3 (4.0-11.0) th/mm3 RBC 4.73 (4.50-5.90) mil/mm3 Hgb 13.1 (13.0-17.0) gm/dL Hct 38.5 L (39.0-51.0) % MCV 81.3 (80.0-100.0) fL MCH 27.6 (27.0-34.0) pg MCHC 33.9 (32.0-36.0) % RDW 13.4 (11.6-17.2) % Plt Count 179 (150-450) th/mm3 MPV 8.4 (7.0-11.0) fL Neut % (Auto) 56.6 (16.0-70.0) % Lymph % (Auto) 36.4 (9.0-44.0) % [place] % (Auto) 4.8 (0.0-8.0) % Eos % (Auto) 1.5 (0.0-4.0) % Baso % (Auto) 0.7 (0.0-2.0) % Neut # (Auto) 3.6 (1.8-7.7) th/mm3 Lymph # (Auto) 2.3 (1.0-4.8) th/mm3 [place] # (Auto) 0.3 (0.0-0.9) th/mm3 Eos # (Auto) 0.1 (0.0-0.4) th/mm3 Baso # (Auto) 0.0 (0.0-0.2) th/mm3 WBC Differential . Differential Comment . PT 11.1 (9.8-11.6) sec INR 1.1 Ratio Sodium (136-145) meq/L Potassium (3.5-5.1) meq/L Chloride (98-107) meq/L Carbon Dioxide (21.0-32.0) meq/L Anion Gap (5-15) meq/L BUN (7-18) mg/dL Creatinine (0.60-1.30) mg/dL Estimated GFR (>89) mL/min Random Glucose (74-106) mg/dL Calcium (8.5-10.1) mg/dL Total Bilirubin (0.2-1.0) mg/dL AST (15-37) U/L ALT (12-78) U/L Alkaline Phosphatase (45-117) U/L Total Protein (6.4-8.2) g/dL Albumin (3.4-5.0) g/dL Urine Color Yellow (Yellw/Straw) Urine Clarity Clear (Clear) Urine pH 5.5 (5.0-8.5) Ur Specific [place] 1.025 (1.002-1.035) Urine Protein 100 H (Neg-Trace) mg/dL Urine Glucose (UA) Negative (Negative) mg/dL Urine Ketones Trace (Negative) mg/dL Urine Occult Blood Large H (Negative) Urine Nitrate Negative (Negative) Urine Bilirubin Negative (Negative) Urine Urobilinogen 0.2 (Less than 2) mg/dL Ur Leukocyte Esterase Negative (Negative) Urine RBC Innumerable H (0-3) /hpf Urine WBC 9-20 H (0-5) /hpf Ur Squamous Epith Cells 0-5 (0-5) /hpf Micro UA Comment Culture indicated Urine Culture Comments Culture indicated 05/27/18 Range/Units 19:26 CBC w Diff WBC (4.0-11.0) th/mm3 RBC (4.50-5.90) mil/mm3 Hgb (13.0-17.0) gm/dL Hct (39.0-51.0) % MCV (80.0-100.0) fL MCH (27.0-34.0) pg MCHC (32.0-36.0) % RDW (11.6-17.2) % Plt Count (150-450) th/mm3 MPV (7.0-11.0) fL Neut % (Auto) (16.0-70.0) % Lymph % (Auto) (9.0-44.0) % [place] % (Auto) (0.0-8.0) % Eos % (Auto) (0.0-4.0) % Baso % (Auto) (0.0-2.0) % Neut # (Auto) (1.8-7.7) th/mm3 Lymph # (Auto) (1.0-4.8) th/mm3 [place] # (Auto) (0.0-0.9) th/mm3 Eos # (Auto) (0.0-0.4) th/mm3 Baso # (Auto) (0.0-0.2) th/mm3 WBC Differential Differential Comment PT (9.8-11.6) sec INR Ratio Sodium 147 H (136-145) meq/L Potassium 4.1 (3.5-5.1) meq/L Chloride 111 H (98-107) meq/L Carbon Dioxide 29.9 (21.0-32.0) meq/L Anion Gap 6 (5-15) meq/L BUN 15 (7-18) mg/dL Creatinine 1.70 H (0.60-1.30) mg/dL Estimated GFR 40 L (>89) mL/min Random Glucose 83 (74-106) mg/dL Calcium 8.3 L (8.5-10.1) mg/dL Total Bilirubin 0.3 (0.2-1.0) mg/dL AST 21 (15-37) U/L ALT 22 (12-78) U/L Alkaline Phosphatase 102 (45-117) U/L Total Protein 6.9 (6.4-8.2) g/dL Albumin 3.5 (3.4-5.0) g/dL Urine Color (Yellw/Straw) Urine Clarity (Clear) Urine pH (5.0-8.5) Ur Specific [place] (1.002-1.035) Urine Protein (Neg-Trace) mg/dL Urine Glucose (UA) (Negative) mg/dL Urine Ketones (Negative) mg/dL Urine Occult Blood (Negative) Urine Nitrate (Negative) Urine Bilirubin (Negative) Urine Urobilinogen (Less than 2) mg/dL Ur Leukocyte Esterase (Negative) Urine RBC (0-3) /hpf Urine WBC (0-5) /hpf Ur Squamous Epith Cells (0-5) /hpf Micro UA Comment Urine Culture Comments Imaging Data Radiologist's impression: Abdomen/Pelvis CT 05/27/18 20:30 CONCLUSION: 1. Focal dilatation or mass seen in the distal right ureter. Urology consultation would be recommended. This could also be further evaluated with a CT urogram if the patient does not have a contraindication to contrast. 2. Colonic diverticula without inflammatory change. 3. Pneumobilia. This was present previously. 4. 4.1 cm right renal mass likely related to a cyst although this is nonspecific on this noncontrast CT examination. 5. Stable 0.6 cm subpleural density seen at the left lower lobe. Discharge Plan Discharge Disposition Patient Disposition: 30 Still Patient Discharge Details Diagnosis: Injury of ureter during surgery Physicians Team ED Provider: Ras Starr Primary Care Provider: Shaw Santos Attending Provider: Yumiko Clements Discharge Interventions Interventions: Vital Signs Last Done: 05/27/18 21:51 Status ED Status: Admitted Observation Patient
[2018-05-27 19:47] LABS: Bilirubin,Urine Negative (Negative); Clarity,Urine Clear (Clear); Color,Urine Yellow (Yellw/Straw); Glucose,Urine (UA) Negative (Negative); Leukocyte Esterase,Urine Negative (Negative); Nitrite,Urine Negative (Negative); PH,Urine 5.5 (5.0-8.5); Specific Gravity,Urine 1.025 (1.002-1.035); Urobilinogen,Urine 0.2 mg/dL (Less than 2)
[2018-05-27 19:52] LABS: RBC,Urine Innumerable /hpf (0-3); Squamous Epithelial Cell,Urine 0-5 /hpf (0-5)
[2018-05-27 19:54] LABS: Chloride 111 meq/L (98-107); Potassium 4.1 meq/L (3.5-5.1); Sodium 147 meq/L (136-145)
[2018-05-27 19:58] LABS: Calcium 8.3 mg/dL (8.5-10.1)
[2018-05-27 19:59] LABS: Albumin 3.5 g/dL (3.4-5.0); Anion Gap 6 meq/L (5-15); Blood Urea Nitrogen 15 mg/dL (7-18); Carbon Dioxide 29.9 meq/L (21.0-32.0); Glucose,Random 83 mg/dL (74-106); INR 1.1 Ratio; Prothrombin Time 11.1 sec (9.8-11.6)
[2018-05-27 20:02] LABS: Alanine Aminotransferase 22 U/L (12-78); Aspartate Aminotransferase 21 U/L (15-37); Glomerular Filtration Rate 40 mL/min (>89)
[2018-05-27 20:04] LABS: Total Protein 6.9 g/dL (6.4-8.2)
[2018-05-27 20:05] LABS: Alkaline Phosphatase 102 U/L (45-117)
[2018-05-27 20:14] LABS: Baso % (Auto) 0.7 % (0.0-2.0); Eos # (Auto) 0.1 th/mm3 (0.0-0.4); Eos % (Auto) 1.5 % (0.0-4.0); Hematocrit 38.5 % (39.0-51.0); Hemoglobin 13.1 gm/dL (13.0-17.0); Lymph # (Auto) 2.3 th/mm3 (1.0-4.8); Lymph % (Auto) 36.4 % (9.0-44.0); Mean Corpuscular HGB Conc 33.9 % (32.0-36.0); Mean Corpuscular Hemoglobin 27.6 pg (27.0-34.0); Mean Corpuscular Volume 81.3 fL (80.0-100.0); Mean Platelet Volume 8.4 fL (7.0-11.0); Mono # (Auto) 0.3 th/mm3 (0.0-0.9); Mono % (Auto) 4.8 % (0.0-8.0); Neut # (Auto) 3.6 th/mm3 (1.8-7.7); Neut % (Auto) 56.6 % (16.0-70.0); Platelet Count 179 th/mm3 (150-450); Red Blood Count 4.73 mil/mm3 (4.50-5.90); Red Cell Distribution Width 13.4 % (11.6-17.2); White Blood Count 6.3 th/mm3 (4.0-11.0)
[2018-05-27] MEDS ORDERED: Acetaminophen 500 MG Tablet PO ONE (22:07)
--- NOTE | 2018-05-27 22:35 | CT ---
EXAM DATE: 05/27/2018 10:21 PM EDT AGE/SEX: 67 years / Male INDICATIONS: Patient noticed blood in his urine. CLINICAL DATA: This is the patient's initial encounter. Patient reports that signs and symptoms have been present for 1 day and indicates a pain score of 1/10. MEDICAL/SURGICAL HISTORY: . Hypertension, high cholesterol, gall stones. Cholecystectomy. RADIATION DOSE: 10.24 CTDI (mGy) COMPARISON: [facility], CT ABDOMEN & PELVIS W/O CONTRAST, 02/10/2018. [facility], CT ABDOMEN & PELVIS W/O CO NTRAST, 09/17/2017. . TECHNIQUE: Multiple contiguous axial images were obtained through the abdomen. Images were obtained using multiple row detector helical technique. Using automated exposure control and adjustment of the mA and/or kV according to patient size, radiation dose was kept as low as reasonably achievable to o btain optimal diagnostic quality images. DICOM format image data is available electronically for rev iew and comparison. FINDINGS: Lower Lungs: There is minimal increased density at the posterior lung bases. There is a 0.6 cm subple ural density seen at the lateral left lower lobe. This was present on a prior CT examination from . Liver: There is pneumobilia again seen. The pneumobilia was present previously. The patient is status post cholecystectomy. The liver appears otherwise unremarkable. Spleen: Homogeneous density without enlargement. Pancreas: Unremarkable without mass or calcification. Kidneys: There is a 4.1 cm low-density mass at the superior lateral right kidney likely related to a cyst although this is nonspecific on this noncontrast CT examination. The kidneys appear otherwise n ormal. No hydronephrosis or renal stones are seen. There is a focal area of distention of the distal right ureter measuring 1.4 cm in diameter. This raises the possibility of a mass in this region. This is approximately 2 cm proximal to the UVJ. Adrenal Glands: Unremarkable. Aorta: The aorta and proximal iliac vessels are grossly unremarkable without aneurysmal dilation. A therosclerotic calcifications are seen. Bowel/Mesentery: There is a diverticulum at the proximal duodenum. There are colonic diverticula see n particularly in the sigmoid region. Significant inflammatory change is not seen. Abdominal Wall: Intact. Retroperitoneum: No evidence of adenopathy in the retrocrural, para-aortic, or deep pelvic regions. Bladder: Contours are smooth. Reproductive Organs: No abnormal masses or calcifications seen. Inguinal: The inguinal region is unremarkable without evidence of adenopathy. Bony Structures: There is degenerative change in the lumbar spine. CONCLUSION: 1. Focal dilatation or mass seen in the distal right ureter. Urology consultation would be recommend ed. This could also be further evaluated with a CT urogram if the patient does not have a contraindic ation to contrast. 2. Colonic diverticula without inflammatory change. 3. Pneumobilia. This was present previously. 4. 4.1 cm right renal mass likely related to a cyst although this is nonspecific on this noncontrast CT examination. 5. Stable 0.6 cm subpleural density seen at the left lower lobe. Electronically signed by: Abhi Muniz MD 05/27/2018 10:34 PM EDT
[2018-05-27] MEDS ORDERED: Temazepam 15 MG Capsule PO PRN (23:19)
[2018-05-27] MEDS ORDERED: Bisacodyl 10 MG Supp RECTAL PRN (23:19)
[2018-05-27] MEDS ORDERED: Acetaminophen 325 MG Tablet PO PRN (23:19)
[2018-05-27] MEDS ORDERED: Morphine Inj 4 MG/ML Vial IV.PUSH PRN ×2 (23:20→23:46)
[2018-05-28] MEDS: Sod Chloride 0.9% Inj 1,000 ML IV.CONT SCH ×2 (00:22→10:32)
[2018-05-28 07:56] LABS: Baso # (Auto) 0.1 th/mm3 (0.0-0.2); Baso % (Auto) 1.5 % (0.0-2.0); Eos # (Auto) 0.1 th/mm3 (0.0-0.4); Eos % (Auto) 2.6 % (0.0-4.0); Hematocrit 38.7 % (39.0-51.0); Hemoglobin 12.5 gm/dL (13.0-17.0); Lymph % (Auto) 42.3 % (9.0-44.0); Mean Corpuscular HGB Conc 32.4 % (32.0-36.0); Mean Corpuscular Volume 83.4 fL (80.0-100.0); Mean Platelet Volume 8.3 fL (7.0-11.0); Mono # (Auto) 0.3 th/mm3 (0.0-0.9); Mono % (Auto) 6.5 % (0.0-8.0); Neut # (Auto) 2.3 th/mm3 (1.8-7.7); Neut % (Auto) 47.1 % (16.0-70.0); Platelet Count 157 th/mm3 (150-450); Red Blood Count 4.64 mil/mm3 (4.50-5.90); Red Cell Distribution Width 13.2 % (11.6-17.2); White Blood Count 4.8 th/mm3 (4.0-11.0)
[2018-05-28 08:08] LABS: Chloride 112 meq/L (98-107); Potassium 3.3 meq/L (3.5-5.1); Sodium 147 meq/L (136-145)
[2018-05-28 08:16] LABS: Anion Gap 8 meq/L (5-15); Blood Urea Nitrogen 14 mg/dL (7-18); Glucose,Random 82 mg/dL (74-106)
[2018-05-28 08:19] LABS: Alanine Aminotransferase 20 U/L (12-78); Aspartate Aminotransferase 20 U/L (15-37); Glomerular Filtration Rate 46 mL/min (>89)
[2018-05-28 08:22] LABS: Alkaline Phosphatase 84 U/L (45-117)
[2018-05-28] MEDS ORDERED: Senna/Docusate Sodium 8.6/50 MG Tablet PO SCH (09:00)
--- NOTE | 2018-05-28 10:53 | P.HPIM ---
History of Present Illness Primary Care Physician: Shaw Santos Chief Complaint: Hematuria History of Present Illness: This patient is a 68-year-old gentleman with history of hypertension and chronic kidney disease stage II who had episodes of hematuria 2 weeks apart. The first episode did happen after colonoscopy and the second episode happened yesterday with episode of passing clots and pink urine. It resolved spontaneously. Patient did come to the emergency room. It has been painless. He is not on anticoagulation on aspirin. He did have CT abdomen pelvis without contrast that showed a right ureter mass as well as a possible right renal mass. Patient at this time is quite comfortable with a stable hemoglobin. He will benefit from further evaluation by urology the patient and the family - Diagnosis (1) Hematuria (2) HTN (hypertension) (3) High cholesterol Review of Systems All other systems reviewed negative except as stated in HPI PMFSH - History History Provided By: Patient - Medical History Medical History: Medical History (Last Reviewed 05/28/18 @ 10:52 by Mary Acosta MD) Back pain GERD (gastroesophageal reflux disease) Gastric ulcer Hypertension Pancreatitis Seizure - Surgical History Surgical History: Surgical History (Last Reviewed 05/28/18 @ 10:52 by Mary Acosta MD) Hx of cholecystectomy - Family History Family History: Family History (Last Reviewed 05/28/18 @ 10:52 by Mary Acosta MD) Father Family history of acute myocardial infarction Mother Family history of cancer Sister Family history of cancer Family history of breast cancer Aunt Family history of cancer Uncle Family history of cancer Brother Family history of hypertension - Tobacco History Second Hand Smoke Exposure: No Tobacco Use In Past 30 Days: No Smoking Status: Former smoker - Alcohol History How Often Do You Have a Drink Containing Alcohol: Never - Substance Use History Substance History: No History of Abuse - Travel History Recent Travel in the [place] Within the Last 8 Weeks: No Recent Travel Out of the Country Within the Last 8 Weeks: No - Immunization History Tetanus Immunization: <5 Years Medications and Allergies Active Medications: Active Medications Acetaminophen (Tylenol) 650 mg PO Q4H PRN PRN Reason: Temp > 100.4 Al Hydroxide/Mg Hydroxide (Milk Of Magnesia Liq) 30 ml PO Q12H PRN PRN Reason: Mild Constipation Atorvastatin Calcium (Lipitor) 10 mg PO DAILY MASSIMO Bisacodyl (Dulcolax Supp) 10 mg RECTAL DAILY PRN PRN Reason: SEVERE CONSITIPATION Sodium Chloride (Ns Inj) 1,000 mls @ 100 mls/hr IV.CONT .Q10H [facility] Last Admin: 05/28/18 10:32 Dose: 100 mls/hr Lactulose (Lactulose Liq) 30 ml PO DAILY PRN PRN Reason: SEVERE CONSITIPATION Lisinopril (Prinivil) 10 mg PO BID [facility] Morphine Sulfate (Morphine Inj) 2 mg IV.PUSH Q4H PRN PRN Reason: PAIN 6-10 Ondansetron HCl (Zofran Inj) 4 mg IV.PUSH Q6H PRN PRN Reason: NAUSEA OR VOMITING Pantoprazole Sodium (Protonix) 20 mg PO DAILY [facility] Senna/Docusate Sodium (Brigid-Colace) 1 tab PO BID [facility] Last Admin: 05/28/18 10:31 Dose: Not Given Sennosides (Senokot) 17.2 mg PO Q12H PRN PRN Reason: Moderate Constipation Temazepam (Restoril) 15 mg PO HS PRN PRN Reason: INSOMNIA Last Admin: 05/28/18 00:36 Dose: 15 mg Allergies Allergy/AdvReac Type Severity Reaction Status Date / Time hydrocodone Allergy Intermediate Rash Verified 05/27/18 18:02 Home Medications Medication Instructions Recorded Confirmed Type atorvastatin 10 mg PO DAILY 05/28/18 05/28/18 History lisinopril 10 mg PO BID 05/28/18 05/28/18 History Exam Vital signs: Vital Signs 05/27/18 18:02 05/27/18 21:51 05/28/18 00:00 Temperature 98.8 F 97.6 F Pulse Rate 65 72 68 Respiratory Rate 16 16 16 Blood Pressure 183/86 H 163/87 H 159/80 H Pulse Oximetry 97 99 97 05/28/18 04:00 05/28/18 08:00 05/28/18 08:36 Temperature 97.5 F L 97.8 F Pulse Rate 58 L 59 L 59 L Respiratory Rate 18 20 Blood Pressure 116/66 136/75 Pulse Oximetry 95 05/28/18 09:00 Temperature Pulse Rate 62 Respiratory Rate 19 Blood Pressure Pulse Oximetry 94 L Intake & Output 05/27/18 05/28/18 05/28/18 18:59 06:59 18:59 Intake Total 1000 / 1000 Output Total 150 / 150 Balance -150 / -150 1000 / 1000 Weight 85.1 kg 84.9 kg Intake: IV 1000 / 1000 NS Inj 1,000 ML @ 100 mls/hr IV 1000 / 1000 .CONT .Q10H MASSIMO Rx#:[id number] Output: Urine 150 / 150 Other: Date of Last Bowel Movement 05/28/18 Weight On Admission 84.9 kg Narrative: GENERAL: Patient calm resting and without complaints SKIN: Warm and dry. No rashes or ecchymotic injuries EYES: Pupils equal and round. No scleral icterus. No injection or drainage. ENT: External ear exam normal. No acute nasal bleeding or discharge. Mucous membranes pink and moist. CARDIOVASCULAR: Regular rate and rhythm. No murmurs gallops or rubs appreciated RESPIRATORY: Good air flow and effort without accessory muscle use. Clear to auscultation. Breath sounds equal bilaterally. GASTROINTESTINAL: Abdomen soft, non-tender, nondistended. Hepatic and splenic margins not palpable. MUSCULOSKELETAL: Extremities without clubbing, cyanosis, or edema. No obvious deformities. NEUROLOGICAL: Awake and alert. No obvious cranial nerve deficits. Motor grossly within normal limits. Five out of 5 muscle strength in the arms and legs. Normal speech. Results - Labs CBC & Chem 7: 05/28/18 06:30 05/28/18 06:30 Labs: Short CBC 05/27/18 05/28/18 Range/Units 19:26 06:30 WBC 6.3 4.8 (4.0-11.0) th/mm3 Hgb 13.1 12.5 L (13.0-17.0) gm/dL Hct 38.5 L 38.7 L (39.0-51.0) % Plt Count 179 157 (150-450) th/mm3 [facility] 05/27/18 05/28/18 19:26 06:30 Sodium 147 H 147 H Potassium 4.1 3.3 L D Chloride 111 H 112 H Carbon Dioxide 29.9 27.0 BUN 15 14 Creatinine 1.70 H 1.50 H Calcium 8.3 L 8.0 L Liver Function 05/27/18 05/28/18 Range/Units 19:26 06:30 Total Bilirubin 0.3 0.7 (0.2-1.0) mg/dL AST 21 20 (15-37) U/L ALT 22 20 (12-78) U/L Alkaline Phosphatase 102 84 (45-117) U/L Albumin 3.5 3.0 L (3.4-5.0) g/dL Urine 05/27/18 Range/Units 19:23 Urine Color Yellow (Yellw/Straw) Urine Clarity Clear (Clear) Urine pH 5.5 (5.0-8.5) Ur Specific [place] 1.025 (1.002-1.035) Urine Protein 100 H (Neg-Trace) mg/dL Urine Glucose (UA) Negative (Negative) mg/dL - Imaging Impressions Abdomen/Pelvis CT 05/27/18 20:30 CONCLUSION: 1. Focal dilatation or mass seen in the distal right ureter. Urology consultation would be recommended. This could also be further evaluated with a CT urogram if the patient does not have a contraindication to contrast. 2. Colonic diverticula without inflammatory change. 3. Pneumobilia. This was present previously. 4. 4.1 cm right renal mass likely related to a cyst although this is nonspecific on this noncontrast CT examination. 5. Stable 0.6 cm subpleural density seen at the left lower lobe. Caprini VTE Risk Assessment Caprini VTE Risk Assessment: Moderate/High Risk (score >= 2) VTE Pharmacological Exception Reason: Active bleeding Caprini Risk Assessment Model: Point Value = 1 Point Value = 2 Point Value = 3 Point Value = 5 Age 41-60 Minor surgery BMI > 25 kg/m2 Swollen legs Varicose veins or History of unexplained or recurrent spontaneous Oral contraceptives or hormone replacement Sepsis (< 1 month) Serious lung disease, including pneumonia (< 1 month) Abnormal pulmonary function Acute myocardial infarction Congestive heart failure (< 1 month) History of inflammatory bowel disease Medical patient at bed rest Age 61-74 Arthroscopic surgery Major open surgery (> 45 min) Laparoscopic surgery (> 45 min) Malignancy Confined to bed (> 72 hours) Immobilizing plaster cast Central venous access Age >= 75 History of VTE Family history of VTE Factor V Leiden Prothrombin [id number] Lupus anticoagulant Anticardiolipin antibodies Elevated serum homocysteine Heparin-induced thrombocytopenia Other congenital or acquired thrombophilia Stroke (< 1 month) Elective arthroplasty Hip, pelvis, or leg fracture Acute spinal cord injury (< 1 month) Prophylaxis Regimen: Total Risk Factor Score Risk Level Prophylaxis Regimen 0-1 Low Early ambulation 2 Moderate Order ONE of the following: *Sequential Compression Device (SCD) *Heparin 5000 units SQ BID 3-4 Higher Order ONE of the following medications: *Heparin 5000 units SQ TID *Enoxaparin/Lovenox 40 mg SQ daily (WT < 150 kg, CrCl > 30 mL/min) *Enoxaparin/Lovenox 30 mg SQ daily (WT < 150 kg, CrCl > 10-29 mL/min) *Enoxaparin/Lovenox 30 mg SQ BID (WT < 150 kg, CrCl > 30 mL/min) AND/OR *Sequential Compression Device (SCD) 5 or more Highest Order ONE of the following medications: *Heparin 5000 units SQ TID (Preferred with Epidurals) *Enoxaparin/Lovenox 40 mg SQ daily (WT < 150 kg, CrCl > 30 mL/min) *Enoxaparin/Lovenox 30 mg SQ daily (WT < 150 kg, CrCl > 10-29 mL/min) *Enoxaparin/Lovenox 30 mg SQ BID (WT < 150 kg, CrCl > 30 mL/min) AND *Sequential Compression Device (SCD) Assessment and Plan - Assessment (1) Hematuria Code(s): R31.9 - Hematuria, unspecified Status: Acute Plan: Etiology unclear but patient appears to have a mass in the right ureter as well as a possible right renal mass. Hematuria has since resolved and hemoglobin remains stable. Case discussed with urology, Dr. Cao. Patient may benefit from outpatient eval and repeated contrasted imaging or ultrasound This will be done as outpatient. Plan of care discussed with patient and niece at bedside who are agreeable Discharge home Activity unrestricted Diet heart healthy (2) HTN (hypertension) Code(s): I10 - Essential (primary) hypertension Status: Acute Plan: Continue lisinopril (3) High cholesterol Code(s): E78.00 - Pure hypercholesterolemia, unspecified Status: Acute Plan: Continue atorvastatin H&P: Quality - VTE Deep Vein Thrombosis/Pulmonary Embolism Present on Admission: No
[2018-05-28] MEDS ORDERED: Pantoprazole Sodium 20 MG DR Tablet PO SCH (11:00)
[2018-05-28] MEDS ORDERED: Lisinopril 10 MG Tablet PO SCH (11:00)
== END 2018-05-28 12:17 | disposition home or self-care (01) ==
LOC: PHEDA 17:57 → PHICU 17:57 → PHED 17:57 → PHEDA 05-28 00:10 → PHICU 05-28 00:24
PROVIDERS: ADMIT Hospitalist; ATTEND Hospitalist
DX: E78.00 Pure hypercholesterolemia, unspecified; N18.2 Chronic kidney disease, stage 2 (mild); K21.9 Gastro-esophageal reflux disease without esophagitis; I12.9 Hypertensive chronic kidney disease with stage 1 through stage 4 chronic kidney disease, or unspecified chronic kidney disease; R31.9 Hematuria, unspecified; N28.89 Other specified disorders of kidney and ureter; K57.30 Diverticulosis of large intestine without perforation or abscess without bleeding

== ENCOUNTER 2018-05-31 21:56 | Observation (INO) ==
--- NOTE | 2018-05-31 23:05 | XR ---
EXAM DATE: 05/31/2018 11:02 PM EDT AGE/SEX: 68 years / Male INDICATIONS: Left sided numbness, chest discomfort. CLINICAL DATA: This is the patient's initial encounter. Patient reports that signs and symptoms have been present for 4 - 6 days and indicates a pain score of 3/10. MEDICAL/SURGICAL HISTORY: Hypertension. Cholecystectomy. COMPARISON: [facility] [place], CHEST SINGLE AP, 02/27/2018. . FINDINGS: A single AP view of the chest demonstrates the lungs to be symmetrically aerated without evidence of mass, infiltrate or effusion. The cardiomediastinal contours are unremarkable. Osseous structures a re intact. There is overlying electrocardiogram leads and oxygen tubing. CONCLUSION: No acute cardiopulmonary disease. Electronically signed by: Elfego Rolon MD 05/31/2018 11:04 PM EDT
[2018-05-31 23:11] LABS: Baso # (Auto) 0.2 th/mm3 (0.0-0.2); Baso % (Auto) 2.9 % (0.0-2.0); Eos # (Auto) 0.1 th/mm3 (0.0-0.4); Eos % (Auto) 2.2 % (0.0-4.0); Hematocrit 41.5 % (39.0-51.0); Hemoglobin 13.6 gm/dL (13.0-17.0); Lymph # (Auto) 2.2 th/mm3 (1.0-4.8); Mean Corpuscular HGB Conc 32.7 % (32.0-36.0); Mean Corpuscular Hemoglobin 27.4 pg (27.0-34.0); Mean Corpuscular Volume 83.8 fL (80.0-100.0); Mean Platelet Volume 7.8 fL (7.0-11.0); Mono # (Auto) 0.3 th/mm3 (0.0-0.9); Neut # (Auto) 3.5 th/mm3 (1.8-7.7); Neut % (Auto) 55.9 % (16.0-70.0); Platelet Count 181 th/mm3 (150-450); Red Blood Count 4.96 mil/mm3 (4.50-5.90); Red Cell Distribution Width 12.7 % (11.6-17.2); White Blood Count 6.3 th/mm3 (4.0-11.0)
[2018-05-31 23:17] LABS: Chloride 107 meq/L (98-107); Potassium 3.5 meq/L (3.5-5.1); Sodium 142 meq/L (136-145)
[2018-05-31 23:20] LABS: Anion Gap 8 meq/L (5-15); Carbon Dioxide 27.2 meq/L (21.0-32.0); Glucose,Random 104 mg/dL (74-106)
[2018-05-31 23:21] LABS: Blood Urea Nitrogen 17 mg/dL (7-18)
[2018-05-31 23:23] LABS: Activated Partial Thrombo Time 25.5 sec (24.3-30.1); Prothrombin Time 10.6 sec (9.8-11.6)
[2018-05-31 23:24] LABS: Glomerular Filtration Rate 38 mL/min (>89)
--- NOTE | 2018-05-31 23:24 | CT ---
EXAM DATE: 05/31/2018 11:20 PM EDT AGE/SEX: 68 years / Male INDICATIONS: Headaches with left sided weakness. CLINICAL DATA: This is the patient's initial encounter. Patient reports that signs and symptoms have been present for 1 day and indicates a pain score of 8/10. MEDICAL/SURGICAL HISTORY: Cerebrovascular disease. Hypertension. Pancreatitis. Cholecystectomy. RADIATION DOSE: 60.29 CTDI (mGy) COMPARISON: [facility], CT BRAIN W/O CONTRAST, 12/13/2017. . TECHNIQUE: CT of the head without contrast. Using automated exposure control and adjustment of the mA and/or kV according to patient size, radiation dose was kept as low as reasonably achievable to ob tain optimal diagnostic quality images. DICOM format image data is available electronically for revi ew and comparison. FINDINGS: Cerebrum: The ventricles are normal for age with mild atrophic change. No evidence of midline shift, mass lesion, hemorrhage or acute infarction. No extraaxial fluid collections are seen. Posterior Fossa: The cerebellum and brainstem are intact. The 4th ventricle is midline. The cerebe llopontine angle is unremarkable. Extracranial: The visualized portion of the orbits is intact. Skull: The calvaria is intact. No evidence of skull fracture. CONCLUSION: 1. Stable appearance with no evidence of hemorrhage or mass effect. Electronically signed by: Elfego Rolon MD 05/31/2018 11:22 PM EDT
--- NOTE | 2018-05-31 23:28 | ED ---
[facility] General Chief complaint: Headache Stated complaint: Neck Pain/Diarrhea/High Bp Time Seen by Provider: 05/31/18 22:53 Source: patient Mode of arrival: ambulatory Limitations: no limitations History of Present Illness HPI narrative: 68yo M with PMH of HTN, CKD II presents to the ED with c/o left facial numbness, left arm numbness and left leg numbness for an hour. Said he has back problems and always have numbness in left leg but the numbness in left arm and face is new. Said he feels like it is improving. He is also complaining of headache, mild chest tightness, mild sob. Denies any nausea, vomiting, abdominal pain, focal weakness, slurred speech, visual changes, trauma. Pt was just admitted for observation 05/27/18-05/28/18 for hematuria and followed up with urology today as outpatient. Denies any history of stroke. Related Data Home Medications Medication Instructions Recorded Confirmed atorvastatin 20 mg PO DAILY 05/28/18 05/28/18 lisinopril 20 mg PO BID 05/28/18 05/28/18 omeprazole 20 mg PO DAILY 05/31/18 05/31/18 Allergies Allergy/AdvReac Type Severity Reaction Status Date / Time hydrocodone Allergy Intermediate Rash Verified 05/31/18 23:40 Review of Systems ROS Unobtainable All other systems reviewed negative except as stated in HPI [facility] Social History Social History Substance History: No History of Abuse Second Hand Smoke Exposure: No Smoking Status: Former smoker How Often Do You Have a Drink Containing Alcohol: Never Recent Travel in [facility] within the Last 8 Weeks: No Exam Narrative Exam Narrative: GENERAL: 68yo M not in distress. SKIN: Focused skin assessment warm/dry. HEAD: Atraumatic. Normocephalic. EYES: Pupils equal and round at 3mm bilaterally. EOMI. ENT: No nasal bleeding or discharge. Mucous membranes pink and moist. NECK: Trachea midline. No JVD. CARDIOVASCULAR: Regular rate and rhythm. No murmur appreciated. RESPIRATORY: No accessory muscle use. Clear to auscultation. Breath sounds equal bilaterally. GASTROINTESTINAL: Abdomen soft, non-tender, nondistended. MUSCULOSKELETAL: No obvious deformities. No clubbing. No cyanosis. No edema. NEUROLOGICAL: Awake and alert. Decreased sensation in left face. No facial droop. Decreased sensation in left arm and leg (not new in leg). Motor grossly within normal limits in all extremities. Normal speech. NIH stroke scale 1. PSYCHIATRIC: Appropriate mood and affect; insight and judgment normal. Course Initial Documented Vital Signs Temperature 98 F 05/31/18 22:23 Pulse Rate 70 05/31/18 22:23 Respiratory Rate 18 05/31/18 22:23 Blood Pressure 169/77 H 05/31/18 22:23 Pulse Oximetry 98 05/31/18 22:23 Last Documented Vital Signs Temperature 98 F 05/31/18 22:23 Pulse Rate 60 05/31/18 23:52 Respiratory Rate 20 05/31/18 23:52 Blood Pressure 146/86 H 05/31/18 23:52 Pulse Oximetry 99 05/31/18 23:52 Medical Decision Making MDM Narrative Medical decision making narrative: 68yo M with HTN and CKD here with c/o sudden onset headache, left face, arm numbness. Pt said he had left leg numbness from disc herniation and that is not new. Also with mild chest pressure and sob. Labs reviewed, no leukocytosis. H/H normal. Creatinine elevated at 1.80 but this is not new. Troponin negative. CT brain showed no evidence of hemorrhage , or mass effect. Pt given acetaminophen for headache. CXR negative. Chest pain is atypical but pt is 68yo and has cardiac risk factors. Said his father of [place] at 68yo. Last stress test 5 years ago. Does not have divorce attorney. Will admit pt for TIA and ACS work up. Discussed with Dr. May and accepted to his service. Differential Diagnosis Differential Diagnosis: TIA vs. [place] stroke vs. anxiety vs. ACS Lab Data Result diagrams: 05/31/18 23:00 05/31/18 23:00 Lab Results 05/31/18 05/31/18 05/31/18 Range/Units 23:00 23:00 23:00 CBC w Diff Auto diff final WBC 6.3 (4.0-11.0) th/mm3 RBC 4.96 (4.50-5.90) mil/mm3 Hgb 13.6 (13.0-17.0) gm/dL Hct 41.5 (39.0-51.0) % MCV 83.8 (80.0-100.0) fL MCH 27.4 (27.0-34.0) pg MCHC 32.7 (32.0-36.0) % RDW 12.7 (11.6-17.2) % Plt Count 181 (150-450) th/mm3 MPV 7.8 (7.0-11.0) fL Neut % (Auto) 55.9 (16.0-70.0) % Lymph % (Auto) 35.0 (9.0-44.0) % [place] % (Auto) 4.0 (0.0-8.0) % Eos % (Auto) 2.2 (0.0-4.0) % Baso % (Auto) 2.9 H (0.0-2.0) % Neut # (Auto) 3.5 (1.8-7.7) th/mm3 Lymph # (Auto) 2.2 (1.0-4.8) th/mm3 [place] # (Auto) 0.3 (0.0-0.9) th/mm3 Eos # (Auto) 0.1 (0.0-0.4) th/mm3 Baso # (Auto) 0.2 (0.0-0.2) th/mm3 WBC Differential . Differential Comment . PT 10.6 (9.8-11.6) sec INR 1.0 Ratio APTT 25.5 (24.3-30.1) sec Sodium 142 (136-145) meq/L Potassium 3.5 (3.5-5.1) meq/L Chloride 107 (98-107) meq/L Carbon Dioxide 27.2 (21.0-32.0) meq/L Anion Gap 8 (5-15) meq/L BUN 17 (7-18) mg/dL Creatinine 1.80 H (0.60-1.30) mg/dL Estimated GFR 38 L (>89) mL/min Random Glucose 104 (74-106) mg/dL Calcium 8.0 L (8.5-10.1) mg/dL Troponin I Less than 0.02 L (0.02-0.05) ng/mL Imaging Data Radiologist's impression: Chest X-Ray 05/31/18 22:30 CONCLUSION: No acute cardiopulmonary disease. Head CT 05/31/18 23:04 CONCLUSION: 1. Stable appearance with no evidence of hemorrhage or mass effect. ECG Data EKG Prior to Arrival: No Attestation: I personally reviewed and interpreted this ECG as follows: Interpretation: NSR 63bpm. LAD. No ST segment elevation or depression. Discharge Plan Discharge Disposition Patient Disposition: 30 Still Patient Discharge Details Diagnosis: Chest pain Physicians Team ED Provider: Evonne Win Primary Care Provider: Shaw Santos Rxs /Orders / Referrals /Forms Prescriptions: No Action lisinopril 10 mg Tablet 20 mg PO BID RF: 0 atorvastatin 10 mg Tablet 20 mg PO DAILY RF: 0 omeprazole 20 mg Capsule,Delayed Release(Dr/Ec) 20 mg PO DAILY RF: 0 Discharge Interventions Interventions: Vital Signs Last Done: 05/31/18 23:52 Status ED Status: With Doctor
[2018-05-31] MEDS ORDERED: Acetaminophen 325 MG Tablet PO ONE (23:39)
[2018-06-01 01:23] LABS: Creatine Kinase 99 U/L (39-308)
[2018-06-01 07:32] LABS: Creatine Kinase 95 U/L (39-308)
--- NOTE | 2018-06-01 09:04 | US ---
EXAM DATE: 06/01/2018 8:59 AM EDT AGE/SEX: 68 years / Male INDICATIONS: Transient ischemic attack. CLINICAL DATA: This is the patient's initial encounter. Patient reports that signs and symptoms have been present for 1 day and indicates a pain score of 0/10. MEDICAL/SURGICAL HISTORY: Gastroesophageal reflux disease. Hypertension. Gastric ulcer. Pancre atitis. Seizures. Cholecystectomy. COMPARISON: No prior exams available for comparison. VELOCITY PARAMETERS: ICA/CCA Ratio: Right 0.8 , Left 1.2 ICA: Right 83 cm/sec, Left 104 cm/sec CCA: Right 108 cm/sec, Left 86 cm/sec ECA: Right 108 cm/sec, Left 92 cm/sec Vertebral: Right 50 cm/sec antegrade, Left 50 cm/sec antegrade FINDINGS: Right Carotid: No significant plaque is visualized.The waveforms are within normal limits. Left Carotid: Minimal plaque is visualized. The waveforms are within normal limits. Other: None. CONCLUSION: 1. Right Internal Carotid Artery: No significant stenosis or atherosclerotic plaque is visualized. 2. Left Internal Carotid Artery: Minimal plaque without significant stenosis. Electronically signed by: Mihai Posadas MD 06/01/2018 9:03 AM EDT
--- NOTE | 2018-06-01 11:18 | P.HP ---
History of Present Illness Primary Care Physician: Shaw Santos Chief Complaint: Left-sided numbness History of Present Illness: 68-year-old male with known history of hypertension, gastroesophageal reflux, recent admission for gross hematuria who just got discharged from the hospital on 05/28/18. Patient was home following up with his urologist. Plans for repeat CT tomorrow. However last night at approximately 930 the patient was in his normal state of health when he suddenly developed left-sided numbness where it was located on his left temporal area left face, then into his left arm and down to his left leg. The patient's was out at that time at [facility] pharmacy getting Imodium for him because he has been having diarrhea when she returned he was waiting at the door and said that he had to go to the emergency department. They arrived to the emergency department approximately 10 PM and the patient still had left sided numbness. Patient was given aspirin and the numbness slowly resolved and at 3 AM his symptoms completely resolved. While the patient was emergency department he had one episode of chest discomfort located in the center part of his chest without any radiation to neck , back, shoulder, arm. States that it was a 3/10 on a pain scale lasting for couple seconds at a time. It was indicated the patient may have had a stress test done approximately 8 years ago. He does not follow with a certified public accountant. Patient does have increased risk factors include age, male, history of tobacco use, hypertension. Because of the patient's symptoms for TIA/CVA as well as a chest pain is recommended by the ER physician the patient be observed in the hospital for continued management. - Diagnosis (1) Left sided numbness (2) Chest pain Review of Systems All other systems reviewed negative except as stated in HPI Cardiovascular: Reports chest pain Neurologic: Reports numbness PMFSH - History History Provided By: Patient, Family Member - Medical History Medical History: Medical History (Last Reviewed 06/01/18 @ 11:08 by ISMAEL Hercules) Back pain GERD (gastroesophageal reflux disease) Gastric ulcer Hypertension Pancreatitis Seizure - Surgical History Surgical History: Surgical History (Last Reviewed 06/01/18 @ 11:08 by ISMAEL Hercules) Hx of cholecystectomy - Family History Family History: Family History (Last Reviewed 06/01/18 @ 11:08 by ISMAEL Hercules) Father Family history of acute myocardial infarction Mother Family history of cancer Sister Family history of cancer Family history of breast cancer Aunt Family history of cancer Uncle Family history of cancer Brother Family history of hypertension - Tobacco History Second Hand Smoke Exposure: No Tobacco Use In Past 30 Days: No Smoking Status: Former smoker - Alcohol History How Often Do You Have a Drink Containing Alcohol: Never - Substance Use History Substance History: No History of Abuse - Travel History Recent Travel in the [place] Within the Last 8 Weeks: No Recent Travel Out of the Country Within the Last 8 Weeks: No - Immunization History Tetanus Immunization: Unsure Medications and Allergies Active Medications: Active Medications Aspirin (Aspirin Chew) 81 mg PO DAILY MASSIMO Last Admin: 06/01/18 08:31 Dose: 81 mg Allergies Allergy/AdvReac Type Severity Reaction Status Date / Time hydrocodone Allergy Intermediate Rash Verified 05/31/18 23:40 Home Medications Medication Instructions Recorded Confirmed Type atorvastatin 20 mg PO DAILY 05/28/18 06/01/18 History lisinopril 20 mg PO BID 05/28/18 06/01/18 History omeprazole 20 mg PO DAILY 05/31/18 05/31/18 History diphenhydramine-acetaminophen 1 tab PO Q4H PRN 06/01/18 06/01/18 History [Tylenol PM Extra Strength] Exam Vital signs: Vital Signs 05/31/18 22:23 05/31/18 22:30 05/31/18 23:52 Temperature 98 F Pulse Rate 70 60 Respiratory Rate 18 20 18 Blood Pressure 169/77 H 169/77 H 146/86 H Pulse Oximetry 98 96 99 06/01/18 01:16 06/01/18 02:00 06/01/18 03:12 Temperature Pulse Rate 67 58 L 59 L Respiratory Rate 20 20 Blood Pressure 126/84 153/83 H Pulse Oximetry 96 06/01/18 03:15 06/01/18 07:34 06/01/18 08:00 Temperature 96.0 F L Pulse Rate 50 L 55 L Respiratory Rate 18 Blood Pressure 151/73 H Pulse Oximetry 99 98 95 06/01/18 08:03 Temperature 96.5 F L Pulse Rate 56 L Respiratory Rate 16 Blood Pressure 129/79 Pulse Oximetry 95 Intake & Output 05/31/18 06/01/18 06/01/18 18:59 06:59 18:59 Intake Total 420 / 420 Output Total 200 / 200 Balance 220 / 220 Weight 86.3 kg Intake: Oral 420 / 420 Output: Urine 200 / 200 Other: Date of Last Bowel Movement 05/26/18 Weight On Admission 86.3 kg Narrative: GENERAL: Well-developed, well-nourished, in no acute distress. alert and orientated HEENT: Head is normocephalic without any lesions or masses noted. Facial features are symmetric. Eyes: Pupils equal round reactive to light. Extraocular muscles are intact. Conjunctivae were clear. Oropharyngeal: Pharynx without any erythema edema. Tongue is midline without deviation. Buccal mucosa is moist without any masses or lesions NECK: Supple without any masses. Trachea midline no deviation. No JVD, no bruits are appreciated CARDIAC: Regular rhythm, regular rate. S1/S2 are heard. No murmurs gallops or rubs. LUNGS: Clear to auscultation bilaterally. No wheeze, rhonchi or rales. No use of accessory muscles on inspiration or expiration. ABDOMEN: Soft, nontender. Nondistended. Bowel sounds heard in all 4 quadrants. No organomegaly or masses. Negative rebound, negative guarding EXTREMITIES: No edema, pulses are equal bilaterally. No cyanosis or clubbing NEUROLOGY: Mood and affect appear appropriate. Cranial nerves II through XII grossly intact. Muscle strength 5/5 in upper and lower extremities bilaterally. Deep tendon reflexes are 2+ in upper and lower extremities bilaterally. Results - Labs CBC & Chem 7: 05/31/18 23:00 05/31/18 23:00 Labs: Laboratory Results - last 24 hr 05/31/18 05/31/18 05/31/18 23:00 23:00 23:00 CBC w Diff Auto diff final WBC 6.3 RBC 4.96 Hgb 13.6 Hct 41.5 MCV 83.8 MCH 27.4 MCHC 32.7 RDW 12.7 Plt Count 181 MPV 7.8 Neut % (Auto) 55.9 Lymph % (Auto) 35.0 [place] % (Auto) 4.0 Eos % (Auto) 2.2 Baso % (Auto) 2.9 H Neut # (Auto) 3.5 Lymph # (Auto) 2.2 [place] # (Auto) 0.3 Eos # (Auto) 0.1 Baso # (Auto) 0.2 WBC Differential . Differential Comment . PT 10.6 INR 1.0 APTT 25.5 Sodium 142 Potassium 3.5 Chloride 107 Carbon Dioxide 27.2 Anion Gap 8 BUN 17 Creatinine 1.80 H Estimated GFR 38 L Random Glucose 104 Calcium 8.0 L Total Creatine Kinase Troponin I Less than 0.02 L 06/01/18 06/01/18 00:45 06:30 CBC w Diff WBC RBC Hgb Hct MCV MCH MCHC RDW Plt Count MPV Neut % (Auto) Lymph % (Auto) [place] % (Auto) Eos % (Auto) Baso % (Auto) Neut # (Auto) Lymph # (Auto) [place] # (Auto) Eos # (Auto) Baso # (Auto) WBC Differential Differential Comment PT INR APTT Sodium Potassium Chloride Carbon Dioxide Anion Gap BUN Creatinine Estimated GFR Random Glucose Calcium Total Creatine Kinase 99 95 Troponin I Less than 0.02 L Less than 0.02 L - Imaging Impressions Chest X-Ray 05/31/18 22:30 CONCLUSION: No acute cardiopulmonary disease. Head CT 05/31/18 23:04 CONCLUSION: 1. Stable appearance with no evidence of hemorrhage or mass effect. Carotid Doppler Study 06/01/18 00:00 CONCLUSION: 1. Right Internal Carotid Artery: No significant stenosis or atherosclerotic plaque is visualized. 2. Left Internal Carotid Artery: Minimal plaque without significant stenosis. Caprini VTE Risk Assessment Caprini VTE Risk Assessment: Moderate/High Risk (score >= 2) Caprini Risk Assessment Model: Point Value = 1 Point Value = 2 Point Value = 3 Point Value = 5 Age 41-60 Minor surgery BMI > 25 kg/m2 Swollen legs Varicose veins or History of unexplained or recurrent spontaneous Oral contraceptives or hormone replacement Sepsis (< 1 month) Serious lung disease, including pneumonia (< 1 month) Abnormal pulmonary function Acute myocardial infarction Congestive heart failure (< 1 month) History of inflammatory bowel disease Medical patient at bed rest Age 61-74 Arthroscopic surgery Major open surgery (> 45 min) Laparoscopic surgery (> 45 min) Malignancy Confined to bed (> 72 hours) Immobilizing plaster cast Central venous access Age >= 75 History of VTE Family history of VTE Factor V Leiden Prothrombin [id number] Lupus anticoagulant Anticardiolipin antibodies Elevated serum homocysteine Heparin-induced thrombocytopenia Other congenital or acquired thrombophilia Stroke (< 1 month) Elective arthroplasty Hip, pelvis, or leg fracture Acute spinal cord injury (< 1 month) Prophylaxis Regimen: Total Risk Factor Score Risk Level Prophylaxis Regimen 0-1 Low Early ambulation 2 Moderate Order ONE of the following: *Sequential Compression Device (SCD) *Heparin 5000 units SQ BID 3-4 Higher Order ONE of the following medications: *Heparin 5000 units SQ TID *Enoxaparin/Lovenox 40 mg SQ daily (WT < 150 kg, CrCl > 30 mL/min) *Enoxaparin/Lovenox 30 mg SQ daily (WT < 150 kg, CrCl > 10-29 mL/min) *Enoxaparin/Lovenox 30 mg SQ BID (WT < 150 kg, CrCl > 30 mL/min) AND/OR *Sequential Compression Device (SCD) 5 or more Highest Order ONE of the following medications: *Heparin 5000 units SQ TID (Preferred with Epidurals) *Enoxaparin/Lovenox 40 mg SQ daily (WT < 150 kg, CrCl > 30 mL/min) *Enoxaparin/Lovenox 30 mg SQ daily (WT < 150 kg, CrCl > 10-29 mL/min) *Enoxaparin/Lovenox 30 mg SQ BID (WT < 150 kg, CrCl > 30 mL/min) AND *Sequential Compression Device (SCD) Assessment and Plan - Assessment (1) Left sided numbness Code(s): R20.0 - Anesthesia of skin Status: Acute (2) Chest pain Code(s): R07.9 - Chest pain, unspecified Status: Acute - Plan Left-sided numbness, possible TIA -Original CT did not indicate any acute abnormality -Carotid ultrasound did not indicate any significant hemodynamic abnormality -Obtain MRI/MRA of the brain -Awaiting echocardiogram, Holter monitor -PT/OT/ST evaluations -Continue aspirin -Obtain lipid panel -Obtain additional labs to include B12, folate, sed rate, TSH -Permissive hypertension Chest pain, atypical -Patient does have increased risk factors include age, male, hypertension, history of tobacco use -Patient has been ruled out for acute coronary event with serial cardiac enzymes that have remained negative -Serial EKGs were performed and reviewed by myself which shows sinus rhythm without any acute changes -Patient continued on aspirin, statin -Unable to use beta aurea or nitroglycerin at this time due to bradycardia -Anticipate myocardial perfusion study tomorrow morning if patient ruled out for stroke, and patient want to pursue provocative testing Hypertension -Home medications held at this time, continue rest of hypertension until stroke ruled out DVT prevention -Sequential compression devices Discussed Condition With: Patient, family at bedside (2) Chest pain Qualifiers: Chest pain type: unspecified Qualified Code(s): R07.9 - Chest pain, unspecified
[2018-06-01 11:45] LABS: Thyroid Stimulating Hormone 2.75 uIU/mL (0.358-3.740)
[2018-06-01] MEDS: Pantoprazole Sodium 20 MG DR Tablet PO SCH (13:36)
[2018-06-01 14:30] LABS: Chol/HDL Ratio 3.32 Ratio; HDL Cholesterol 29.8 mg/dL (40.0-60.0)
[2018-06-01] MEDS ORDERED: Acetaminophen 325 MG Tablet PO PRN (16:00)
--- NOTE | 2018-06-01 16:35 | MR ---
EXAM DATE: 06/01/2018 3:46 PM EDT AGE/SEX: 68 years / Male INDICATIONS: . Left sided weakness. CLINICAL DATA: This is the patient's subsequent encounter. Patient reports that signs and symptoms h ave been present for 2 days and indicates a pain score of 0/10. MEDICAL/SURGICAL HISTORY: Hypertension. Hypercholesterolemia. Cholecystectomy. skin graft, lef t leg surgery COMPARISON: [facility], CT HEAD W/O CONTRAST, 05/31/2018. . TECHNIQUE: Multiplanar, multisequence examination of the brain was performed without contrast. FINDINGS: Diffusion weighted images demonstrate no evidence for acute infarction. There are scattered foci of i ncreased FLAIR signal in the bilateral periventricular white matter and basal ganglia, most character istic of mild chronic microvascular ischemic disease. No hemorrhage, acute infarct, or mass. There is mild volume loss. CONCLUSION: 1. Mild atrophy and remote infarcts. No evidence for acute infarction. Electronically signed by: Darian Wu MD 06/01/2018 4:33 PM EDT
--- NOTE | 2018-06-01 16:57 | MR ---
EXAM DATE: 06/01/2018 4:51 PM EDT AGE/SEX: 68 years / Male INDICATIONS: . Left sided numbness. CLINICAL DATA: This is the patient's subsequent encounter. Patient reports that signs and symptoms h ave been present for 2 days and indicates a pain score of 0/10. MEDICAL/SURGICAL HISTORY: Hypertension. Hypercholesterolemia. Cholecystectomy. skin graft, lef t leg surgery COMPARISON: [facility], MR HEAD W/O CONTRAST, 06/01/2018. . TECHNIQUE: 3D [id number] MRA was performed. Source images, multiplanar STS MIP, and 3D volum e MIP reconstructions were reviewed. FINDINGS: There is excellent visualization of the major intracranial arteries out to the second-order branch ve ssels. There is no evidence for aneurysm, vessel truncation or stenosis, and no evidence for vascula r malformation. CONCLUSION: 1. Negative MRA Cow ([place] [facility] [place]) non contrast. Electronically signed by: Sylvester Neal MD 06/01/2018 4:56 PM EDT
--- NOTE | 2018-06-01 17:16 | ECG ---
Date Performed: 05/31/2018 Time Performed: 22:39:46 PTAGE: 68 years EKG: Sinus rhythm LOW QRS VOLTAGE IN PRECORDIAL LEADS BORDERLINE ECG Since the PREVIOUS TRACING , no significant change noted PREVIOUS TRACIN07/19/2017 02.43 DOCTOR: Geni Bess Interpretating Date/Time 06/01/2018 17:15:54
[2018-06-01 18:42] LABS: Folate 12.5 ng/mL (3.1-17.5)
[2018-06-01] MEDS: Lisinopril 10 MG Tablet PO SCH (20:52)
[2018-06-01 21:48] VITALS: RESP 20
--- NOTE | 2018-06-02 07:30 | P.PN ---
Subjective Interval history: 68-year-old male who is seen in follow-up today for sided numbness, chest pain. Patient is doing well this morning. Denies any recurrent symptoms. Denies any chest pain. Patient still undergoing workup at this time. Vital signs remained stable. Patient afebrile Physical Exam Vital signs: Vital Signs 06/01/18 07:34 06/01/18 08:00 06/01/18 08:03 Temperature 96.5 F L Pulse Rate 55 L 56 L Respiratory Rate 16 Blood Pressure 129/79 Pulse Oximetry 98 95 95 06/01/18 12:03 06/01/18 16:03 06/01/18 19:41 Temperature 97.1 F L 97.4 F L Pulse Rate 64 60 Respiratory Rate 17 17 Blood Pressure 134/79 162/87 H Pulse Oximetry 97 95 95 06/01/18 19:46 06/01/18 20:00 06/01/18 21:47 Temperature 96 F L Pulse Rate 67 55 L Respiratory Rate 20 Blood Pressure 139/81 Pulse Oximetry 93 L 98 97 06/02/18 00:00 06/02/18 05:00 Temperature 96.7 F L 96.8 F L Pulse Rate 51 L 56 L Respiratory Rate 20 20 Blood Pressure 149/98 H 155/92 H Pulse Oximetry 95 96 Intake & Output 06/01/18 06/02/18 06/02/18 18:59 06:59 18:59 Intake Total 480 / 480 0 / 0 Balance 480 / 480 0 / 0 Weight 87.6 kg Intake: Oral 480 / 480 0 / 0 Other: # Voids 2 2 Date of Last Bowel Movement 05/26/18 # Bowel Movements 0 Narrative: GENERAL: Well-developed, well-nourished, in no acute distress. alert and orientated HEENT: Head is normocephalic without any lesions or masses noted. Facial features are symmetric. Eyes: Extraocular muscles are intact. Conjunctivae were clear. NECK: Supple without any masses. Trachea midline no deviation. No JVD, CARDIAC: Regular rhythm, regular rate. S1/S2 are heard. No murmurs gallops or rubs. LUNGS: Clear to auscultation bilaterally. No wheeze, rhonchi or rales. No use of accessory muscles on inspiration or expiration. ABDOMEN: Soft, nontender. Nondistended. Bowel sounds heard in all 4 quadrants. No organomegaly or masses. Negative rebound, negative guarding EXTREMITIES: No edema, pulses are equal bilaterally. No cyanosis or clubbing NEUROLOGY: Mood and affect appear appropriate. Cranial nerves II through XII grossly intact. Moving all extremities, speech is clear Results - Labs CBC & Chem 7: 05/31/18 23:00 05/31/18 23:00 Laboratory Results - last 24 hr 06/01/18 06/01/18 06/01/18 00:45 06:30 06:30 ESR 12 Total Creatine Kinase Cancelled 95 Troponin I Cancelled Less than 0.02 L Triglycerides Cholesterol LDL Cholesterol, Calc HDL Cholesterol Cholesterol/HDL Ratio Vitamin B12 158 L Folate 12.5 TSH 06/01/18 06:30 ESR Total Creatine Kinase Troponin I Triglycerides 151 H Cholesterol 99 L LDL Cholesterol, Calc 39 HDL Cholesterol 29.8 L Cholesterol/HDL Ratio 3.32 Vitamin B12 Folate TSH 2.750 - Imaging Impressions Carotid Doppler Study 06/01/18 00:00 CONCLUSION: 1. Right Internal Carotid Artery: No significant stenosis or atherosclerotic plaque is visualized. 2. Left Internal Carotid Artery: Minimal plaque without significant stenosis. Head MRI 06/01/18 00:00 CONCLUSION: 1. Mild atrophy and remote infarcts. No evidence for acute infarction. Head MRA 06/01/18 00:00 CONCLUSION: 1. Negative MRA Cow ([place] [facility] [place]) non contrast. - Procedures ECHOCARDIOGRAM CONCLUSIONS The left ventricular systolic function is mildly reduced with an estimated ejection fraction in the range of 45- 50%. Wall thickness is measured at the upper limits of normal. Normal left ventricular size. The left atrial size is upper limits of normal. There is mild tricuspid valve regurgitation. The estimated pulmonary arterial pressure is 30.1 mmHg. Assessment and Plan - Assessment (1) Left sided numbness Code(s): R20.0 - Anesthesia of skin Status: Acute (2) Chest pain Code(s): R07.9 - Chest pain, unspecified Status: Acute - Plan Left-sided numbness, possible TIA -Initial CT did not indicate any acute abnormality -Carotid ultrasound did not indicate any significant hemodynamic abnormality -MRI and MRA did not indicate any acute abnormality -Echocardiogram, see above results -Awaiting Holter monitor, can be followed up outpatient -PT/OT/ST evaluations -Continue aspirin -Lipid panel was performed and did indicate LDL 39 -Further studies to include folate, sed rate, TSH were unremarkable -B12 is low, started replacement therapy Chest pain, atypical -Patient does have increased risk factors include age, male, hypertension, history of tobacco use -Patient has been ruled out for acute coronary event with serial cardiac enzymes that have remained negative -Serial EKGs were performed and reviewed by myself which shows sinus rhythm without any acute changes -Patient continued on aspirin, statin -Unable to use beta aurea or nitroglycerin at this time due to bradycardia -Myocardial perfusion study was performed and indicated no signs of ischemia, low risk Hypertension -Resume home medications DVT prevention -Sequential compression devices Discharge Planning: Discharge home in stable condition Activity: Ad dejuan. Diet: Healthy heart diet Medication per medication reconciliation Follow-up with primary medical doctor in 1 week (2) Chest pain Qualifiers: Chest pain type: unspecified Qualified Code(s): R07.9 - Chest pain, unspecified
[2018-06-02] MEDS ORDERED: Regadenoson Inj 0.4 MG/5 ML Syringe IV.PUSH ONE (09:11)
[2018-06-02] MEDS: Pantoprazole Sodium 20 MG DR Tablet PO SCH (09:54)
[2018-06-02] MEDS: Lisinopril 10 MG Tablet PO SCH (09:54)
--- NOTE | 2018-06-02 10:09 | NM ---
EXAM DATE: 06/02/2018 10:05 AM EDT AGE/SEX: 68 years / Male INDICATIONS:Angina. . Left sided chest pain for one day. CLINICAL DATA: This is the patient's initial encounter. Patient reports that signs and symptoms have been present for 1 day and indicates a pain score of 3/10. MEDICAL/SURGICAL HISTORY: Gastroesophageal reflux disease. Hypertension. Cholecystectomy. COMPARISON: No prior exams available for comparison. No external comparison. DOSE: 8.7 mCi Tc 99m Myoview at rest 25.4 mCi [id number] at stress 0.4 mg Lexiscan STRESS SYMPTOMS: Asymptomatic. EJECTION FRACTION: >70 % TECHNIQUE: The patient underwent pharmacologic stress with infusion of prescribed dose. Continuous ECG tracing was monitored during stress. Gated SPECT imaging was performed after stress and conventi onal SPECT imaging was performed at rest. The examination was performed on a SPECT/CT scanner, both attenuation and non-corrected datasets were reviewed. FINDINGS: Distribution: The maximum perfused segment at stress is in the inferior wall. Perfusion Study: The pattern of perfusion at stress is within normal limits. Gated Study: There are intact wall motion and wall thickening without hypokinetic or dyskinetic segm ents. The ejection fraction is calculated at >70%. RISK CATEGORY: Low (<1% Annual Motality Rate) CONCLUSION: 1. Unremarkable myocardial perfusion examination. Electronically signed by: Andi Barboza MD 06/02/2018 10:08 AM EDT
[2018-06-02 11:06] LABS: Chol/HDL Ratio 3.7 Ratio; HDL Cholesterol 27.5 mg/dL (40.0-60.0)
[2018-06-02 12:36] VITALS: BP 143/88; PULSE 64; TEMP 97.3; O2SAT 96
--- NOTE | 2018-06-02 14:10 | ECHRPT ---
Indication: CVA/TIA CONCLUSIONS The left ventricular systolic function is mildly reduced with an estimated ejection fraction in the range of 45- 50%. Wall thickness is measured at the upper limits of normal. Normal left ventricular size. The left atrial size is upper limits of normal. There is mild tricuspid valve regurgitation. The estimated pulmonary arterial pressure is 30.1 mmHg. BP: / HR: Rhythm: Sinus MEASUREMENTS (Male / Female) Normal Values Technical Quality:Poor 2D ECHO LV Diastolic Diameter PLAX 3.9 cm 4.2 - 5.9 / 3.9 - 5.3 cm LV Systolic Diameter PLAX 3.1 cm IVS Diastolic Thickness 1.0 cm 0.6 - 1.0 / 0.6 - 0.9 cm LVPW Diastolic Thickness 1.0 cm 0.6 - 1.0 / 0.6 - 0.9 cm LV Relative Wall Thickness 0.5 LVOT Diameter 2.0 cm M-MODE Aortic Root Diameter MM 3.5 cm LA Systolic Diameter MM 4.2 cm LA Ao Ratio MM 1.2 AV Cusp Separation MM 2.3 cm DOPPLER AV Peak Velocity 129.0 cm/s AV Peak Gradient 6.7 mmHg LVOT Peak Velocity 103.0 cm/s LVOT Peak Gradient 4.2 mmHg AV Area Cont Eq pk 2.5 cm Mitral E Point Velocity 60.7 cm/s Mitral A Point Velocity 92.8 cm/s Mitral E to A Ratio 0.7 LV E' Lateral Velocity 6.9 cm/s Mitral E to LV E' Lateral Ratio 8.8 LV E' Septal Velocity 6.5 cm/s Mitral E to LV E' Septal Ratio 9.3 TR Peak Velocity 224.0 cm/s TR Peak Gradient 20.1 mmHg Right Atrial Pressure 10.0 mmHg Pulmonary Artery Systolic Pressu 30.1 mmHg Right Ventricular Systolic Press 30.1 mmHg PV Peak Velocity 100.0 cm/s PV Peak Gradient 4.0 mmHg FINDINGS LEFT VENTRICLE The left ventricular systolic function is mildly reduced with an estimated ejection fraction in the range of 45- 50%. Wall thickness is measured at the upper limits of normal. Normal left ventricular size. RIGHT VENTRICLE Normal right ventricular size and systolic function. LEFT ATRIUM The left atrial size is upper limits of normal. RIGHT ATRIUM The right atrial size is normal. ATRIAL SEPTUM Normal atrial septal thickness without atrial level shunting by limited color doppler interrogation. AORTA The aortic root and proximal ascending aorta are normal in size on limited imaging. MITRAL VALVE Structurally normal mitral valve. No mitral valve stenosis or regurgitation. AORTIC VALVE Trileaflet aortic valve. No aortic valve stenosis or regurgitation. TRICUSPID VALVE There is mild tricuspid valve regurgitation. The estimated pulmonary arterial pressure is 30.1 mmHg. PULMONARY VALVE No pulmonary valve regurgitation or stenosis. VESSELS The inferior vena cava is normal in size. PERICARDIUM No pericardial effusion. Román Martinez MD, FACC, [facility] (Electronically Signed) Final Date:02 June 2018 14:08
[2018-06-02 16:56] LABS: Hemoglobin A1c 5.6 % (4.3-6.0)
--- NOTE | 2018-06-03 14:02 | TR ---
Date Performed: 06/02/2018 Time Performed: 09:23:48 DOCTOR: Ashvin Lord DRUG LIST: CLINICAL HISTORY: ANGINA REASON FOR TEST: Angina REASON FOR ENDING: OBSERVATION: CONCLUSION: COMMENTS: Lexiscan stress test was performed under standard four minute protocol. Radionuclide was injected one minute prior to ending the test. No electrocardiographic abormalities were present t o suggest ischemia. Nuclear imaging and interpretation are pending.
--- NOTE | 2018-06-04 14:33 | HM ---
Date Performed: 06/01/2018 Time Performed: 17:23:00 HOOKUP DATE: 06/01/18 05:23:00 PM Wed ANALYSIS START TIME: 06/01/2018 5:28:00 PM ANALYSIS END TIME: 06/02/2018 2:45:41 PM PATIENT AGE: 68 PATIENT HEIGHT PATIENT WEIGHT DRUG LIST PATIENT DIAGNOSIS TEST NARRATIVE: The patient's average heart rate was 62 BPM. Heart rates greater than 120 B PM were noted < 1% of the time. Heart rates less than 50 BPM were noted 8% of the time. Baseline rh ythm was sinus. No pauses exceeding 2.0 seconds were noted. 235 ventricular ectopics, which r epresented < 1% of the total beat count, were noted. The highest ventricular ectopic frequency occur red from 08:00 PM to 09:00 PM Wed. During this time 19 VE(s) occurred. Ventricular ectopics were ob served as 235 isolated beat(s) only. No couplets or runs were noted. 138 supraventricular ectopi cs, which represented < 1% of the total beat count, were noted. The highest supraventricular ectopic frequency occurred from 09:00 AM to 10:00 AM Cristine. During this time 113 SVE(s) occurred. No epis odes of ST depression (defined as -1.0 mm or more) were noted in channel 1. No episodes of ST depres michelle (defined as -1.0 mm or more) were noted in channel 2. No episodes of ST depression (defined as -1.0 mm or more) were noted in channel 3. No diary provided TEST INTERPRETATION: Normal Holter Signed by : Geni Bess
== END 2018-06-02 15:29 | disposition home or self-care (01) ==
LOC: PHED 21:56 → PH3 21:56 → PHEDA 21:56 → PH3 06-01 02:55
PROVIDERS: ADMIT Hospitalist; ATTEND Hospitalist
DX: Z87.11 Personal history of peptic ulcer disease; I12.9 Hypertensive chronic kidney disease with stage 1 through stage 4 chronic kidney disease, or unspecified chronic kidney disease; I65.22 Occlusion and stenosis of left carotid artery; R00.1 Bradycardia, unspecified; R51 Headache; Z87.891 Personal history of nicotine dependence; I07.1 Rheumatic tricuspid insufficiency; N18.2 Chronic kidney disease, stage 2 (mild); Z90.49 Acquired absence of other specified parts of digestive tract; R94.31 Abnormal electrocardiogram [ECG] [EKG]; R20.0 Anesthesia of skin; K21.9 Gastro-esophageal reflux disease without esophagitis; Z80.3 Family history of malignant neoplasm of breast; R07.9 Chest pain, unspecified; Z82.49 Family history of ischemic heart disease and other diseases of the circulatory system